=== PATIENT | male | born 1995 | race Caucasian/White ===

== ENCOUNTER 2017-06-02 18:52 | Emergency (ER) | payer MEDICAID, SELFPAY ==
[2017-06-02 18:53] VITALS: BP 139/84; PULSE 82; RESP 16; TEMP 36.6; O2SAT 100; BMI 17.5
--- NOTE | 2017-06-02 18:57 | NURSING ---
NO OLD EKG'S IN MUSE
--- NOTE | 2017-06-02 19:51 | EKG12_ITS ---
Test Reason : CP Blood Pressure : / mmHG Vent. Rate : 091 BPM Atrial Rate : 091 BPM P-R Int : 172 ms QRS Dur : 092 ms QT Int : 340 ms P-R-T Axes : 069 098 057 degrees QTc Int : 418 ms Normal sinus rhythm with sinus arrhythmia Normal ECG Confirmed by GRICELDA BURNETT, JANE ([id number]), online content editor [employer] ([id number]) on 06/05/2017 11:21:36 AM Referred By: MONICA Confirmed By:JANE MADISON MD
[2017-06-02] MEDS: Aspirin 81 MG TAB.CHEW 324 MG PO (19:56)
--- NOTE | 2017-06-02 20:01 | ED.VISSUMM ---
- ER Visit Summary Date of Service: 06/02/17 Chief Complaint: Chest pain History of Present Illness: The patient is a 22 M who presents with chest pain that has been intermittent for the past 2 weeks but has been constant throughout the day today. Patient states the pain woke him up this morning. Patient describes his pain as sharp. Patient states the pain is worse with movement and deep breathing. Patient admits to some shortness of breath. Patient also admits to a cough. Patient denies any fevers or chills. Patient denies any nausea or vomiting. Patient denies any diaphoresis. Physical Examination: Vital signs are stable. Patient is afebrile. Patient is in no acute distress. Oral mucosa is pink and moist. Neck is supple. There is no JVD or lymphadenopathy appreciated. Heart was regular rate and rhythm. Lungs are clear and equal bilateral. There is good respiratory effort noted. Abdomen is soft. Bowel sounds are normal. There is no tenderness. Cranial nerves II through XII are intact. There are no focal motor or sensory deficits noted. The remaining physical exam is within normal limits. Test Results: EKG showed a normal sinus rhythm with a rate of 91. There are no acute ST or T-wave changes noted. There are no prior EKGs available for comparison. A minimal left pleural effusion. CBC, basic metabolic profile, troponin were obtained were all within normal limits. Emergency Department Course and Treatment: Patient was given aspirin here. Patient felt better on reevaluation. Patient has a HEART score of 1 for smoking. Patient was advised that this is low risk for acute cardiac disease. Patient was instructed to follow-up with his primary care physician in 5-7 days. Patient understood and was agreeable with the plan. All questions were answered. Disposition: Discharge home Impression: Chest pain of uncertain etiology This note was generated with [employer] dictation software. It may contain incorrect words, spelling, and punctuation that were not noted in review of the chart prior to signing ED Disposition - Plan for ED Patient: Disposition: Home or Assisted Living Chief Complaint: Chest Pain Diagnosis: Chest pain of uncertain etiology Instructions: ED Chest Pain Atypical Unkn Cause Referrals: Care Physician,No Primary [Primary Care Provider] -
[2017-06-02 20:02] VITALS: BP 128/66; PULSE 73; RESP 18; O2SAT 97
--- NOTE | 2017-06-02 20:04 | RAD_ITS ---
STUDY: X-RAY CHEST REASON FOR EXAM: Male, 22 years old. Left-sided chest pain TECHNIQUE: PA and lateral views of the chest. COMPARISON: Previous study of 12/24/2012 FINDINGS: color television console monitor leads are present. The lungs are clear and expanded. There is a minimal left-sided effusion, new in the interval. Normal size heart. Normal mediastinum and jimmy. Normal visualized pulmonary arteries. Normal visualized aortic arch and descending thoracic aorta. Normal visualized thoracic spine. Normal visualized ribs, clavicles, and shoulders. There is no demonstrated abnormality of the visualized soft tissue structures of the upper abdomen. RAD/Chest PA and Lateral IMPRESSION: Minimal left-sided effusion. Electronically Signed: Woody Madison MD at 20:27 EDT , Service support ,
[2017-06-02 20:07] LABS: Absolute Lymphocyte Count 3.24 X10^3/ul (0.83-4.51); Absolute Neutrophil Count 4.6 X10^3/uL (2.0-7.7); Basophil# 0.04 X10^3/uL; Basophil% 0.4 % (0-1); Eosinophils% 4.4 % (0-5); Hematocrit 45.3 % (40-54); Hemoglobin 15.3 g/dl (13.0-16.5); Lymphocyte # 3.24 X10^3/ul (4.0); Lymphocyte % 35.6 % (19-41); Mean Corp Hgb Conc 33.8 g/gl (32-36); Mean Corpuscular Hgb 29.3 pg (27.0-32.0); Mean Corpuscular Volume 86.8 fL (80-94); Mean Platelet Vol. 9.6 fl (6.2-12.0); Monocyte# 0.79 X10^3/uL; Monocyte% 8.7 % (0-10); Neutrophil # 4.62 X10^3/uL (2.7-7.7); Neutrophil % 50.7 % (47-70); Platelet Count 274 K/mm3 (150-450); RBC Distribution Width CV 12.3 % (11.6-14.6); RBC Distribution Width SD 39.1 fl (35.1-43.9); Red Blood Count 5.22 M/mm3 (4.6-6.2); White Blood Count 9.1 K/mm3 (4.4-11.0)
[2017-06-02 20:21] LABS: Anion Gap 5 (5-15); BUN 11 mg/dL (7-18); BUN/Creat Ratio 12.2 RATIO (10-20); Chloride 107 mmol/L (98-107); EST Glomerular Filtration Rate 115 mL/min (>60); Est Glom Filt Rate - Afr Amer 139 mL/min (>60); Estimated Creatinine Clearance 114.81 ml/min; Glucose 62 mg/dL (74-106); Potassium 3.8 mmol/L (3.5-5.1); Sodium Level 143 mmol/L (136-145)
[2017-06-02 20:23] LABS: POSITIVE COUNT NO; POSITIVE DIFFERENTIAL NO; POSITIVE MORPHOLOGY NO
[2017-06-02 21:09] VITALS: BP 105/64; PULSE 62; RESP 18; O2SAT 97
[2017-06-02 22:19] VITALS: BP 149/71; PULSE 67; RESP 16; O2SAT 99
== END 2017-06-02 22:22 | disposition home or self-care (01) ==
PROVIDERS: Emergency Provider Emergency Medicine
DX: R07.9 Chest pain, unspecified (principal); F17.210 Nicotine dependence, cigarettes, uncomplicated; J90 Pleural effusion, not elsewhere classified
CPT/HCPCS: 71046; 80048; 84484; 85025; 93005; 99284; A4216

== ENCOUNTER 2018-09-27 08:36 | Emergency (ER) | payer SELFPAY ==
[2018-09-27 08:36] VITALS: BP 145/102; PULSE 91; RESP 17; TEMP 36.7; O2SAT 98; BMI 16.2
--- NOTE | 2018-09-27 08:52 | ED.VISSUMM ---
- ER Visit Summary Date of Service: 09/27/18 Chief Complaint: [Depression and anxiety] History of Present Illness: The patient is a 23 M [presents to the emergency department stating that he thinks he had a mental breakdown this morning while at work. Patient states that he just started tearing up and crying. Patient has had history of anxiety and depression in the past and had been on medication but states that those medications did not agree with him and he was having suicidal ideation while on the medications but now while he was off of it. Patient states that everything kind of seems to stem from the fact that he broke up with his baby's mother about 4 months ago and he only gets to see the baby twice a week. Patient has no thoughts of wanting to harm himself or anybody else. He denies any hallucinations. Patient does not feel like he needs to be hospitalized but would like to have some counseling potentially. Patient denies any auditory or visual hallucinations. Patient states that he is feeling significantly more calm at this time.] Physical Examination: [HEENT-PERRLA, EOMI. Cranial nerves II through XII grossly intact. TMs clear. Mucous membranes moist. No adenopathy. Cardiovascular-regular rate and rhythm without murmur or ectopy Lungs-clear to auscultation, chest wall stable without crepitus or subcu emphysema Abdomen-normoactive bowel sounds, soft, nontender, no rebound or rigidity, no peritoneal signs. Extremities-intact ?4, normal range of motion, normal pulses, atraumatic] Test Results: [None indicated] Emergency Department Course and Treatment: [Patient will be given a milligram of Ativan p.o. Patient will be seen by crisis to set up an outpatient plan for him. Patient will be seen at 10 AM today by the counseling center.] Treatment Plan: [Patient will be given a prescription for as needed Ativan.] Disposition: [Discharged home stable condition.] Impression: [Depression Anxiety ] This note was generated with [employer] dictation software. It may contain incorrect words, spelling, and punctuation that were not noted in review of the chart prior to signing ED Disposition - Plan for ED Patient: Referrals: Care Physician,No Primary [Primary Care Provider] -
--- NOTE | 2018-09-27 08:56 | ED.DEP ---
ED Disposition - Plan for ED Patient: Instructions: Depression, Panic Attack Prescriptions: Lorazepam [Ativan] 1 mg PO TID PRN #10 tab PRN Reason: Anxiety Prescription Printed Referrals: Care Physician,No Primary [Primary Care Provider] - Additional Instructions: Go to counseling center at 10am for appointment
[2018-09-27] MEDS: LORazepam 1 MG Tablet PO (09:01)
[2018-09-27 09:02] VITALS: BP 134/74; PULSE 79; RESP 18; O2SAT 99
== END 2018-09-27 09:05 | disposition home or self-care (01) ==
PROVIDERS: Emergency Provider Emergency Medicine
DX: F41.9 Anxiety disorder, unspecified (principal); F32.9 Major depressive disorder, single episode, unspecified; Z72.0 Tobacco use; F12.90 Cannabis use, unspecified, uncomplicated
CPT/HCPCS: 99283

== ENCOUNTER 2018-11-02 15:09 | Emergency (ER) | payer SELFPAY ==
[2018-11-02 15:09] VITALS: BP 111/67; PULSE 100; RESP 17; TEMP 37.6; O2SAT 96; BMI 17.2
--- NOTE | 2018-11-02 15:42 | ED.DCSUM_ITS ---
History of Present Illness Chief Complaint: Abscess Informant: Patient Onset: Days - 3 Context: Gradual Onset Timing: Continuous Narrative: Patient is a 23-year-old male with remote history of brain tumor as a child pres enting from home with worsening redness and swelling of his right forearm. He is right-hand dominant. Pain started approximately 3 days ago with what he describes as a boil. Yesterday he popped it open and did have purulent drainage from it. He has had worsening redness and pain around the area that has been spreading. Patient denies any fever or chills. Denies any nausea or vomiting. Denies any history of abscesses or MRSA. He denies any allergies. He denies any other complaints at this time. Patient took a dose of Motrin early this morning. Past Medical History - Allergies and Home Meds Allergies/Adverse Reactions: Allergies No Known Allergies Allergy (Verified 11/02/18 15:09) Primary Care Physician: Care Physician,No Primary [Primary Care Provider] - Surgical History: no surgical history, - - Brain surgery Smoking Status: Current every day smoker Alcohol: Occasional Drugs: Marijuana, - - Denies any IV drug use Review of Systems All systems negative except as indicated General: Denies: Chills, Fever Skin: Reports: Rash, Abscess - right forearm Physical Exam Vital Signs/Narrative: Vital Signs Temp Pulse Resp BP Pulse Ox 11/02/18 15:09 99.7 F H 100 17 111/67 96 Inital Vital Signs reviewed: Yes General: Well nourished, Well developed, No Acute Distress Head: Normocephalic, Atraumatic Eyes: Perrl, EOMI ENT: Moist mucous membranes, No rhinorrhea Neck: Supple, Nontender Cardiovascular: Regular rate, Regular rhythm, No murmurs Respiratory: No distress Abdomen: Soft, Nontender Extremities: No edema, Tenderness - right dostal forearm, palmar aspect Skin: - - 1 cm circumferential area of erythema and fluctuance consistent with an abscess with a central scab. There is a 10 cm surrounding area of erythema and warmth consistent with cellulitis, small amount of streaking at the medial proximal aspect of this approximately 2 cm Neurological: Alert, Oriented x3, Cranial nerves II-XII grossly intact, Normal Strength, Normal Sensation Psychological: Normal affect, Normal Mood Diagnostic/Tx/Re-eval - Medical Decision Making Patient has abscess with associated cellulitis of the right lower arm. She had previously lanced the abscess. The abscess is reopened up with no purulence expressed. Patient is given first dose of Bactrim and Keflex in the emergency room. Edges of the erythema are marked. Patient is counseled on signs of worsening infection such as fever, spreading erythema or worsening pain. Patient is counseled on signs and symptoms requiring return to the emergency room. Patient verbalizes agreement and understand this plan. Patient discharged home in stable and improved condition. Procedures Procedure(s): Incision and drainage. Area cleansed with alcohol. 0.5 cc of 1% lidocaine with epinephrine injected over maximum area of fluctuance to form a wheel. A #11 blade is used to make 1 cm linear incision. Wound was opened with a hemostat. No purulence was stressed. Patient tolerated procedure well with no obvious application. ED Disposition - Plan for ED Patient: Disposition: Home or Assisted Living Diagnosis: Cellulitis of right upper extremity Instructions: ABSCESS, Incision and Drainage, MRSA SKIN INFECTION, Suspected or Confirmed Prescriptions: Sulfamethoxazole/Trimethoprim [Bactrim Ds Tablet] 1 ea PO BID #14 tab Prescription Printed Cephalexin [Keflex] 500 mg PO [id number] #28 cap Prescription Printed Ibuprofen [Motrin] 600 mg PO Q6H PRN PRN #20 tab PRN Reason: Pain Prescription Printed Referrals: Zoie Bateman MD [STAFF PHYSICIAN] - Additional Instructions: Apply warm compresses 3-4 times a day. Return if the marked redness is worsening or you develop fever. Try to keep the wound clean.
[2018-11-02 16:23] VITALS: PULSE 64; TEMP 37.6; O2SAT 100
[2018-11-02] MEDS: Ibuprofen 600 MG Tablet PO (16:27)
[2018-11-02] MEDS: Cephalexin 500 MG Capsule PO (16:27)
[2018-11-02] MEDS: Smz/Tmp Ds Tablet 1 TABLET PO (16:28)
[2018-11-02 17:11] VITALS: BP 123/64; PULSE 61; O2SAT 100
== END 2018-11-02 17:14 | disposition home or self-care (01) ==
PROVIDERS: Emergency Provider Emergency Medicine
DX: L03.113 Cellulitis of right upper limb (principal); F17.200 Nicotine dependence, unspecified, uncomplicated
CPT/HCPCS: 10060; 99283

== ENCOUNTER 2021-04-15 10:05 | Emergency (ER) | payer MEDICAID, SELFPAY ==
[2021-04-15 10:06] VITALS: BP 130/85; PULSE 82; RESP 17; TEMP 36.4; O2SAT 98; BMI 18.7
--- NOTE | 2021-04-15 10:17 | EX.ED.GENINJ ---
HPI <SONU Johnson - Last Filed: 04/15/21 10:56> History of Present Illness Chief Complaint: Laceration Narrative Narrative: 25-year-old [id number] male presents with a laceration to his right index finger. He was using a box stapler approximately an hour ago and nicked the edge of his finger. Bleeding is controlled. Last tetanus over 10 years ago. PFSH <SONU Johnson Last Filed: 04/15/21 10:56> PFSH Home Medications cephalexin 500 mg PO [id number] #28 cap 11/02/18 [Rx Last Taken Unknown] ibuprofen 600 mg PO Q6H PRN PRN #20 tab 11/02/18 [Rx Last Taken Unknown] sulfamethoxazole-trimethoprim 1 ea PO BID #14 tab 11/02/18 [Rx Last Taken Unknown] Allergy/AdvReac Type Severity Reaction Status Date / Time No Known Allergies Allergy Verified 04/15/21 10:06 Social History Smoking Status: Current every day smoker tobacco type: cigarettes ROS <SONU Johnson - Last Filed: 04/15/21 10:56> ROS ED ROS Narrative Constitutional: Negative for fever, chills, malaise. Eyes: Negative for visual change. ENT: Negative for sore throat, ear pain, rhinorrhea. CVS: Negative for palpitations, chest pain, syncope. Respiratory: Negative for shortness of breath, cough. GI: Negative for abdominal pain, nausea, vomiting. : Negative for dysuria, hematuria or frequency. Neuro: Negative for headache, motor/sensory dysfunction. Skin: Positive for wound. Negative for rash, abscess. Musc: Negative for joint pain, swelling. Heme: Negative for easy bruising, bleeding, lymphadenopathy. EXAM <SONU Johnson - Last Filed: 04/15/21 10:56> Physical Exam Narrative Exam Narrative: CONST: Patient sitting in no acute distress. EYES: Normal inspection. ENT: Normal inspection, moist mucous membranes. NECK: Normal inspection. Back: Normal inspection, no CVA tenderness. SKIN: Color normal, no rash, warm, dry, intact. EXTREMITIES: Normal appearance, no gross deformity. Right index finger pad has 0.5 cm flap laceration and also a small abrasion. No involvement of the nail, no subungual hematoma. Full ROM, capillary refill less than 2 seconds. NEURO: Oriented x4. PSYCH: Normal affect. Const Vital Signs: 04/15/21 10:06 Temperature 97.5 F L Temperature Source Temporal Pulse Rate 82 Respiratory Rate 17 Blood Pressure 130/85 H Blood Pressure Mean 100 Pulse Ox 98 Oxygen Delivery Method Room Air <Dr. Yordy Jin DO - Last Filed: 04/15/21 12:42> Physical Exam Const Vital Signs: 04/15/21 10:06 Temperature 97.5 F L Temperature Source Temporal Pulse Rate 82 Respiratory Rate 17 Blood Pressure 130/85 H Blood Pressure Mean 100 Pulse Ox 98 Oxygen Delivery Method Room Air MDM <SONU Johnson - Last Filed: 04/15/21 10:56> [facility] Narrative Medical decision making narrative: Patient was evaluated for right index finger laceration. He has a 0.5 cm superficial laceration and also an abrasion on the finger pad. Neurovascularly intact and no bony tenderness. It was thoroughly cleansed with soap and water and closed with skin glue. He refused a tetanus vaccine. He was counseled on wound care and to watch for signs of infection and was discharged in stable condition. Diagnosis 1. Right index finger laceration- glued <Dr. Yordy Jin, - Last Filed: 04/15/21 12:42> [facility] Narrative Medical decision making narrative: Patient was seen and evaluated with the PA. I agree with her evaluation and assessment. Patient is a superficial laceration to the right index finger. There is no active bleeding. Patient does not want a tetanus update and refuses. I think his wound can be closed with skin glue. Patient was amenable to this. He is discharged home in stable condition Discharge Plan Triage Chief Complaint: Laceration ED Provider: Jacqueline Art Dx/Rx/DC Orders Clinical Impression: Finger laceration Instructions: ED Laceration, Extremity: Skin Glue Prescriptions: No Action sulfamethoxazole-trimethoprim 1 EACH tablet 1 ea PO BID Qty: 14 RF: 0 cephalexin 500 MG capsule 500 mg PO [id number] Qty: 28 RF: 0 ibuprofen 600 MG tablet 600 mg PO Q6H PRN PRN (Reason: Pain) Qty: 20 RF: 0 Primary Care Provider: Care Physician,No Primary Referrals: Care Physician,No Primary [Primary Care Provider] - Activity Restrictions/Additional Instructions: The laceration was closed with skin glue which will fall off on its own in 1-2 weeks. Keep clean. You can shower or wash hands but do not keep submerged under water. Disposition Disposition: Home, Self Care Discharge Date/Time: 04/15/21 11:05
== END 2021-04-15 11:05 | disposition home or self-care (01) ==
PROVIDERS: Emergency Provider Physician Assistant; Visit Provider Physician Assistant
DX: S61.210A Laceration without foreign body of right index finger without damage to nail, initial encounter (principal); S60.519A Abrasion of unspecified hand, initial encounter; F17.210 Nicotine dependence, cigarettes, uncomplicated; Z23 Encounter for immunization; W26.8XXA Contact with other sharp object(s), not elsewhere classified, initial encounter
CPT/HCPCS: 12001; 99282

== ENCOUNTER 2021-12-22 16:16 | Emergency (ER) | payer MEDICAID, SELFPAY ==
[2021-12-22 16:16] VITALS: BP 119/89; PULSE 112; RESP 16; TEMP 36.6; O2SAT 99; BMI 16.9
--- NOTE | 2021-12-22 16:24 | RAD_ITS ---
STUDY: X-RAY - RIGHT HAND REASON FOR EXAM: Male, 26 years old. INJURY TECHNIQUE: 3 view(s) of the hand. COMPARISON: None. FINDINGS: Normal radiocarpal articulation. Normal distal radioulnar joint. Normal visualized carpal bones. Normal carpal articulations Normal carpometacarpal articulation of the thumb. Normal second through fifth carpometacarpal joints. Suspect subtle oblique fracture the base of the fifth metacarpal bone. Normal metacarpophalangeal joint of the thumb. Normal interphalangeal joint of the thumb. Normal proximal and distal phalanges of the thumb. Normal metacarpophalangeal joints of the second through fifth fingers. Normal proximal and distal interphalangeal joints of the second through fifth fingers. Normal phalanges of the second through fifth fingers. The soft tissue structures are unremarkable. RAD/Hand Min 3 Views IMPRESSION: Suspect subtle oblique fracture the base of the fifth metacarpal bone. Electronically Signed: Wally Mccoy MD at 17:41 EDT ,
--- NOTE | 2021-12-22 16:50 | EX.ED.UPPERE ---
HPI History of Present Illness Chief Complaint: Upper Extremity Injury Narrative Narrative: Patient presents with right hand pain after mechanical fall yesterday. No hand injury, no wrist injury no other injury. PFSH PFSH Home Medications cephalexin 500 mg capsule 500 mg PO [id number] #28 caps 11/02/18 [Rx Last Taken Unknown] ibuprofen 600 mg tablet 600 mg PO Q6H PRN PRN Pain #20 tabs 11/02/18 [Rx Last Taken Unknown] sulfamethoxazole 800 mg-trimethoprim 160 mg tablet 1 ea PO BID #14 tabs 11/02/18 [Rx Last Taken Unknown] Allergy/AdvReac Type Severity Reaction Status Date / Time No Known Allergies Allergy Verified 12/22/21 16:18 Social History Smoking Status: Current every day smoker tobacco type: cigarettes ROS ROS ED ROS Narrative Past medical history: none Medications: Reviewed Social history: Noncontributory Review of systems: Musculoskeletal: Right hand pain as in HPI Skin: No abrasions or lacerations Neurological: No weakness or paresthesias Hematologic: No easy bleeding or easy bruising EXAM Physical Exam Narrative Exam Narrative: Physical exam General: Patient does not appear in significant distress . Head: Normocephalic, Atraumatic Neck: No C-spine tenderness Cardiovascular: Normal distal pulses Back: Nontender, Normal Inspection. Extremities: Right palm has tenderness over the hypothenar region. Normal strength sensation and full range of motion no wrist pain Skin: No abrasions, no lacerations Neurological: Normal strength and sensation Const Vital Signs: 12/22/21 16:16 Temperature 98 F Temperature Source Temporal Pulse Rate 112 H Respiratory Rate 16 Blood Pressure 119/89 H Blood Pressure Mean 99 Pulse Ox 99 Oxygen Delivery Method Room Air MDM MDM Radiography Diagnostic Testing: Right hand x-ray read by me is normal Treatment and Re-Evaluation Narrative: Patient has a normal x-ray I will discharge with reassurance I do not believe he needs a splint Discharge Plan Triage Chief Complaint: Upper Extremity Injury ED Provider: Quirino Majano Dx/Rx/DC Orders Clinical Impression: Fall, Contusion of hand Instructions: Bone Contusion Prescriptions: No Action sulfamethoxazole-trimethoprim 1 EACH tablet 1 ea PO BID Qty: 14 0RF cephalexin 500 MG capsule 500 mg PO [id number] Qty: 28 0RF ibuprofen 600 MG tablet 600 mg PO Q6H PRN PRN (Reason: Pain) Qty: 20 0RF Primary Care Provider: Care Physician,No Primary Referrals: Care Physician,No Primary [Primary Care Provider] - 3-5 Days Disposition Disposition: Home, Self Care
== END 2021-12-22 16:59 | disposition home or self-care (01) ==
PROVIDERS: Emergency Provider Emergency Medicine; Visit Provider Emergency Medicine
DX: S60.229A Contusion of unspecified hand, initial encounter (principal); F17.210 Nicotine dependence, cigarettes, uncomplicated; W19.XXXA Unspecified fall, initial encounter
CPT/HCPCS: 73130; 99282

== ENCOUNTER 2022-06-26 14:22 | Emergency (ER) | payer MEDICAID, SELFPAY ==
[2022-06-26 14:23] VITALS: BP 131/89; PULSE 99; RESP 16; TEMP 36.3; O2SAT 98; BMI 17.4
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
[2022-06-26] MEDS: Ketorolac 15 MG/ML Vial IV (14:39)
[2022-06-26] MEDS: Ondansetron 4 MG/2 ML Vial IV (14:39)
[2022-06-26] MEDS: Morphine 4 MG/ML Syringe IV (14:40)
[2022-06-26 14:55] LABS: Bedside Glucose 97 mg/dL (74-106)
[2022-06-26 15:06] LABS: Anion Gap 9 (5-15); BUN 14 mg/dL (7-18); BUN/Creat Ratio 14.6 RATIO (10-20); Calcium,Total 9.3 mg/dL (8.5-10.1); Chloride 106 mmol/L (98-107); Creatinine, Serum 0.96 mg/dL (0.70-1.30); EST Glomerular Filtration Rate 102 mL/min (>60); Est Glom Filt Rate - Afr Amer 123 mL/min (>60); Glucose 97 mg/dL (74-106); Potassium 3.1 mmol/L (3.5-5.1); Sodium Level 140 mmol/L (136-145)
== END 2022-06-26 15:32 | disposition home or self-care (01) ==
PROVIDERS: Emergency Provider Emergency Medicine; Visit Provider Emergency Medicine
DX: S29.019A Strain of muscle and tendon of unspecified wall of thorax, initial encounter (principal); E11.9 Type 2 diabetes mellitus without complications; E87.6 Hypokalemia; W19.XXXA Unspecified fall, initial encounter; F17.210 Nicotine dependence, cigarettes, uncomplicated
CPT/HCPCS: 80048; 82962; 99283; A4216; J2405

== ENCOUNTER 2022-12-08 07:34 | Emergency (ER) | payer MEDICAID, SELFPAY ==
[2022-12-08 07:35] VITALS: BP 133/91; PULSE 105; RESP 18; TEMP 36.2; O2SAT 96; BMI 17.7
--- NOTE | 2022-12-08 07:42 | EX.ED.DYSGE1 ---
HPI History of Present Illness Chief Complaint: [facility] Medical History (Updated 12/08/22 @ 07:50 by Mag Ha) Hx of traumatic brain injury Home Medications sulfamethoxazole 800 mg-trimethoprim 160 mg tablet 1 ea PO BID #14 tabs 11/02/18 [Rx Last Taken Unknown] sulfamethoxazole 800 mg-trimethoprim 160 mg tablet (Bactrim DS) 1 tab PO BID 7 days #14 tabs 12/08/22 [Rx Last Taken Unknown] Allergy/AdvReac Type Severity Reaction Status Date / Time No Known Allergies Allergy Verified 12/08/22 07:36 Social History (Updated 06/26/22 @ 14:[address] Kasi Snyder MD) Smoking Status: Current every day smoker tobacco type: cigarettes substance use type: does not use EXAM Physical Exam Const Vital Signs: 12/08/22 07:35 Temperature 97.2 F L Temperature Source Temporal Pulse Rate 105 H Respiratory Rate 18 Blood Pressure 133/91 H Blood Pressure Mean 105 Pulse Ox 96 Oxygen Delivery Method Room Air MDM MDM MDM Narrative Medical decision making narrative: HISTORY OF PRESENT ILLNESS: 27-year-old male here with left middle finger redness swelling pain and drainage. He states that started several days ago. States he works his hands at work he injured his left hand. He noticed several days later he developed redness swelling. He does note it was draining yellow/white fluid several days ago but has since stopped the redness has gotten worse and is painful to palpation. He denies history of diabetes or other immunocompromising states REVIEW OF SYSTEMS: Pertinent positives: Left middle finger redness Pertinent negatives: Fever, nausea vomiting PHYSICAL EXAM: Nursing triage notes reviewed, Vital signs reviewed Constitutional: please see mdm Extremities: Fingers were held in neutral position, not held in flexion, no fusiform swelling, no pain over flexor tendons, Neuro: Intact 5/5 strength with ok sign (median), intact finger abduction (ulnar) intact wrist extension (radial n). Intact sensation in the radial, ulnar, and median nerve distributions. Skin: Erythema noted to the dorsal surface of the third digit of the left hand MEDICAL DECISION MAKING: Chief Complaint: Finger pain External records reviewed: Prior ED records reviewed: Last ED visit in June 2022 Factors affecting care: none Social determinants of health: none History obtained from others: none Consults: none MDM Narrative: Patient was hemodynamically stable, afebrile, nontoxic-appearing. I considered the following differential diagnosis: Cellulitis, paronychia, felon, flexor tenosynovitis Clinical exam is consistent with cellulitis. No evidence of felon, paronychia or flexor tenosynovitis. Will provide antibiotics. Gave strict return precautions. The patient and/or family, caregivers express understanding. The patient and/or family, caregivers agrees with the plan. Shared decision making: I will have a discussion with the patient and or visitors regarding risk/benefits of further testing or admission. They will be made aware of of the risk/benefits inherent in this decision they will be given the opportunity to voice understanding. Total critical care time today provided was at least 0 minutes. This excludes separately billable procedures. Critical care time (if documented) is secondary to the patient having high probability of clinically significant/life threatening deterioration in the patient's condition which required my urgent intervention. Impression: 1. Finger cellulitis Dispo: Discharge Discharge Plan Triage Chief Complaint: Wound ED Provider: Abraham Howell Dx/Rx/DC Orders Instructions: ED Cellulitis Prescriptions: New sulfamethoxazole-trimethoprim [Bactrim DS] 800-160 mg tablet 1 tab PO BID 7 Days Qty: 14 0RF No Action sulfamethoxazole-trimethoprim 1 EACH tablet 1 ea PO BID Qty: 14 0RF Stand Alone Forms: ED Work / School Excuse Primary Care Provider: Care Physician,No Primary Referrals: Rudy Gonzalez MD [Med Staff - [employer]] - Activity Restrictions/Additional Instructions: Thank you for trusting us with your care today! Please take Tylenol (2 pills, 650 mg), ibuprofen (2 pills, 400 mg) every 6 hours as needed for pain and fever control. Please take antibiotics as prescribed. Please return to the emergency department if your symptoms change or worsen. Specifically develop nausea vomiting out of antibiotic by mouth. If your redness suddenly gets worse and spreads up your arm or matter of hours. Please follow with your primary care physician for further outpatient evaluation and management. Disposition Disposition: Home, Self Care Discharge Date/Time: 12/08/22 08:02
== END 2022-12-08 08:02 | disposition home or self-care (01) ==
LOC: ED 08:01
PROVIDERS: Emergency Provider Emergency Medicine; Visit Provider Emergency Medicine
DX: L03.019 Cellulitis of unspecified finger (principal); F17.210 Nicotine dependence, cigarettes, uncomplicated; Z87.820 Personal history of traumatic brain injury
CPT/HCPCS: 99282

== ENCOUNTER 2025-02-17 12:09 | Emergency (ER) | payer SELFPAY ==
[2025-02-17 12:09] VITALS: BP 120/96; PULSE 107; RESP 18; TEMP 36.9; O2SAT 99; BMI 17.9
[2025-02-17 12:11] VITALS: BP 120/96; PULSE 105; RESP 16; TEMP 36.9; O2SAT 98
--- NOTE | 2025-02-17 12:57 | CT_ITS ---
PROCEDURE: ABDOMEN/PELVIS W IV CONT ONLY 02/17/2025 REASON FOR EXAM: RLQ PAIN TECHNIQUE: Procedure Code: [id number] Modality: CT Procedure: ABDOMEN/PELVIS W IV CONT ONLY Coronal and Sagittal reconstruction series were provided. CONTRAST: Isovue-300 VOLUME: 98 mL One or more dose reduction techniques were used (e.g., Automated exposure control, adjustment of the mA and/or kV according to patient size, use of iterative reconstruction technique. RADIATION DOSE SUMMARY: DLP: 389.50 MGycm COMPARISON: None available. FINDINGS: Lower chest: Lung bases are clear. Liver: Normal size. Mild hepatic steatosis. No enhancing lesion. Gallbladder and biliary ducts: Unremarkable gallbladder. Normal caliber intrahepatic and common bile ducts. Pancreas:Unremarkable. No ductal dilatation or mass. No peripancreatic fluid. Spleen: Unremarkable. Adrenal glands: Unremarkable. Kidneys and ureters: Normal renal size, morphology, and enhancement. No nephroureterolithiasis or hydroureteronephrosis. No renal mass. Urinary bladder: Nondistended. Otherwise unremarkable. GI: Unremarkable stomach and duodenum. Normal caliber small bowel and large bowel. Multiple loops of fluid-filled bowel, predominantly small bowel and right colon. No evidence for bowel obstruction. Appendix: Unremarkable. Peritoneum: No ascites. Lymph nodes: Scattered nonspecific subcentimeter shotty mesenteric lymph nodes. No lymphadenopathy. Vasculature: Portal, splenic, and superior mesenteric veins are patent. No abdominal aortic aneurysm. Reproductive organs: Normal size prostate. Symmetrical seminal vesicles. Musculoskeletal and soft tissues: No aggressive osseous lesions. Unremarkable soft tissues. CT/Abdomen/Pelvis W IV Cont ONLY IMPRESSION: 1. No evidence of bowel obstruction. 2. No acute appendicitis. 3. Multiple loops of fluid-filled bowel which is nonspecific but may be seen in the setting of diarrhea. Reading Location: [id number]
[2025-02-17 13:08] LABS: Hematocrit 48.2 % (40-54); Hemoglobin 16.6 g/dL (13.0-16.5); Immature Granulocytes Count 0.100 X10^3/uL (0.0-0.0); Mean Corp Hgb Conc 34.4 g/dL (32-36); Mean Corpuscular Volume 87.0 fL (80-94); Mean Platelet Vol. 9.1 fl (6.2-12.0); NRBC Flagged by Analyzer 0 % (0-5); Platelet Count 275 K/mm3 (150-450); RBC Distribution Width CV 12.2 % (11.6-14.6); RBC Distribution Width SD 38.7 fl (35.1-43.9); Red Blood Count 5.54 M/mm3 (4.6-6.2); White Blood Count 20.7 K/mm3 (4.4-11.0)
--- NOTE | 2025-02-17 13:12 | EDS_ITS ---
HPI History of Present Illness Chief Complaint: General Illness Narrative Narrative: Patient is a 29-year-old male with no known significant past medical history does not follow with a physician on a regular basis who presents to the emergency department the chief complaint of abdominal pain nausea, vomiting and not feeling well. He states that he has been sick for about 10 days however starting yesterday he became significantly worse and has been able to keep anything down prompting him to come here for further evaluation and management. Patient denies any sick contacts. He denies any previous abdominal surgery. [facility] Medical History Hx of traumatic brain injury Home Medications ?Medication ?Instructions ?Recorded ?Last Taken ?Type dicyclomine 20 mg tablet 20 mg PO TID PRN abdominal p ain 02/17/25 Unknown Rx #20 tabs ondansetron 4 mg disintegrating 4 mg PO Q6H PRN nausea and 02/17/25 Unknown Rx tablet vomiting #20 tabs Allergy/AdvReac Type Severity Reaction Status Date / Time No Known Allergies Allergy Verified 02/17/25 12:11 Family History no significant family his Social History Smoking Status: Current every day smoker tobacco type: cigarettes substance use type: does not use ROS ROS ED ROS Narrative Constitutional: Denies any fevers, chills, headache Eyes: Denies double vision Cardiovascular: Denies chest pain Respiratory: Denies shortness of breath Abdomen: Complains of abdominal pain nausea vomiting as noted above : Denies urinary symptoms Neurological: Complains of generalized weakness denies any numbness or tingling Musculoskeletal: Denies back pain Skin: Denies any rashes or lesions EXAM Physical Exam Narrative Exam Narrative: General: Patient was lying in bed did appear to be feeling unwell overall Head: Atraumatic, normocephalic Eyes: PERRL bilaterally, EOMI bilaterally, no conjunctival injection noted Neck: Soft, supple, trachea midline Cardiovascular: Patient tachycardic with a regular rhythm Respiratory: Clear to auscultation bilaterally Abdomen: Soft, tenderness to palpation of the right lower quadrant no rebound or guarding on exam Extremities: +5/5 strength noted in the bilateral upper and lower extremities Neurological: Patient following commands and that he was at [facility] year is 2024 Skin: Warm, dry, intact no rashes or lesions noted Const Vital Signs: 02/17/25 12:09 02/17/25 12:11 02/17/25 14:09 Temperature 98.4 F 98.4 F Temperature Source Oral Oral Pulse Rate 107 H 105 H 97 Respiratory Rate 18 16 26 H Blood Pressure 120/96 H 120/96 H 127/78 H Blood Pressure Mean 104 104 94 Pulse Ox 99 98 100 Oxygen Delivery Method Room Air Room Air Room Air MDM MDM MDM Narrative Medical decision making narrative: Patient is a 29-year-old male who presented to the emergency department the chief complaint of abdominal pain nausea vomiting not able to keep anything down. On the differential diagnose includes but not limited to viral gastroenteritis, appendicitis, pancreatitis. Once workup is obtained reviewed he will be reevaluated. Patient CBC was significant for leukocytosis of 20,000, hemoglobin was noted to be 16.6 hemoconcentrated, plate count 275. Patient sodium was noted be 139, potassium normal at 4.4, creatinine 0.96. Patient's AST and ALT were 30 and 22 respectively lipase normal at 39, urinalysis reviewed showed 5 ketones no evidence of infection. Patient CT ab pelvis with IV contrast reviewed showed no evidence of bowel obstruction no acute appendicitis with multiple loops of fluid-filled bowel nonspecific but may be seen in setting diarrhea. Discussed case with on-call general surgeon Dr. Miner who reviewed the CT as well and also agrees that he does not feel that this patient has evidence on CT to suggest appendicitis. Patient passed oral challenge here in the emergency department. He is advised to continue supportive care with pushing fluids and use the Bentyl and Zofran as prescribed. He is encouraged to follow-up his doctor and return with worsening symptoms or any concerns. He is agreeable this plan all question concerns answered he is discharged home in stable condition Lab Data Labs: Laboratory Results - last 24 hr 02/17/25 02/17/25 12:55 13:44 WBC 20.7 H RBC 5.54 Hgb 16.6 H Hct 48.2 MCV 87.0 MCH 30.0 MCHC 34.4 RDW Std Deviation 38.7 RDW Coeff of Bari 12.2 Plt Count 275 MPV 9.1 Immature Gran % (Auto) 0.500 Neut % (Auto) 92.2 H Lymph % (Auto) 3.4 L [place] % (Auto) 3.5 Eos % (Auto) 0.1 Baso % (Auto) 0.3 Absolute Neuts (auto) 19.1 H Absolute Lymphs (auto) 0.71 L Nucleated RBC % 0 Sodium 139 Potassium 4.4 Chloride 103 Carbon Dioxide 24.5 Anion Gap 12 BUN 19 Creatinine 0.96 Estim Creat Clear Calc 106.34 Est GFR (MDRD) Non-Af 111 BUN/Creatinine Ratio 19.4 Glucose 135 H Calcium 9.6 Total Bilirubin 0.48 AST 30 ALT 22 Alkaline Phosphatase 61 Total Protein 7.5 Albumin 4.8 Globulin 2.7 Albumin/Globulin Ratio 1.8 Lipase 39 Urine Color Yellow Urine Clarity Clear Urine pH 7.0 Ur Specific [place] 1.010 Urine Protein 30 H Urine Glucose (UA) Normal Urine Ketones 5 H Urine Occult Blood Negative Urine Nitrite Negative Urine Bilirubin Negative Urine Urobilinogen Normal Ur Leukocyte Esterase Negative Urine RBC 0 SEEN Urine WBC 0 SEEN Ur Squamous Epith Cells 0-5 SEEN Urine Bacteria 0 SEEN Urine Mucus 0 SEEN Radiography Diagnostic Testing: Clinical Impression(s) from Imaging Studies Abdomen/Pelvis CT 02/17/25 12:57 IMPRESSION: 1. No evidence of bowel obstruction. 2. No acute appendicitis. 3. Multiple loops of fluid-filled bowel which is nonspecific but may be seen in the setting of diarrhea. Reading Location: [id number] Discharge Plan Triage Chief Complaint: General Illness ED Provider: Go Hamm Dx/Rx/DC Orders Clinical Impression: Abdominal pain, Nausea & vomiting, Viral gastroenteritis Prescriptions: New dicyclomine 20 mg tablet 20 mg PO TID PRN (Reason: abdominal pain) Qty: 20 0RF ondansetron 4 mg tablet,disintegrating 4 mg PO Q6H PRN (Reason: nausea and vomiting) Qty: 20 0RF Primary Care Provider: Care Physician,No Primary Referrals: Care Physician,No Primary [Primary Care Provider, Medical] Jonelle Craig, [facility] Activity Restrictions/Additional Instructions: Your CT of your belly did not show any evidence of appendicitis you likely have a viral illness causing your symptoms continue supportive care with pushing fluids such as water, Pedialyte, Gatorade etc. Use prescriptions as prescribed and return with worsening symptoms or any other concerns Print Language: Luxembourgish Disposition Disposition: Home, Self Care
--- OUTSIDE RECORDS SUMMARY | 2025-02-17 13:21 | XMS RPT_ITS | CCD ---
Author Organization [facility] Inform ion Partnership [facility] Care Team Providers Care Electrical Contacts Adjuster Name Role Phone Doug Combs Unavailable Now Nurse Unavailable Unavailable Unavailable Primary Care Provider Unavailabl e Unavailable Primary Care Provider Unavailabl e Quirino Majano Attending Unavailable Care Physician, No Primary Primary Care Unava ilable Snyder, Kasi Attending Unavailable Care Physician, No Primary Primary Care Unava ilable Medications Current Medications Medication Drug Class(es) Dates Sig (Normalized) Sig (Original) amoxicillin 875 mg / clavulanate 125 mg oral tablet (1 source) Penicillin-class Antibacterial Start: 09-07-2021 End: 09-14-2021 take 1 tablet by mouth twice daily amoxicillin-cla vulanic acid (AUGMENTIN) 875-125 mg per tablet Indications: Cat scratch of hand, left, initial encounter Take 1 tablet by mouth twice daily for 7 days. 14 tablet 0 09/07/2021 09/14/2021 Active Comment on above: Take 1 tablet by scott th twice daily for 7 days. sulfamethoxazole 800 mg / trimethoprim 160 mg oral tablet (4 sources) Dihydrofolate Reductase Inhibitor Antibacterial, Sulfonamide Antimicrobial Start: 12-08-2022 take 1 tablet by mouth twice daily Sulfamethoxazol e-Trimethoprim (Bactrim Ds) 800-160 mg tablet Active 1 TABLET PO TWICE A DAY 05 09December 08, 2022 12:00am Start: 11-02-2018 Sulfamethoxazo le-Trimethoprim Active 1 EACH PO TWICE A DAY November 02, 2018 12:00am Completed/Discontinued Medications Medication Drug Class(es) Dates Sig (Normalized) Sig (Original) acetaminophen 325 mg / HYDROcodone bitartrate 5 mg oral tablet (2 sources) Opioid Agonist Start: 06-26-2022 End: 12-08-2022 take 1 tablet by mouth every six hours as needed Hydrocodone-Aceta minophen Discontinued 1 TABLET PO EVERY 6 HOURS NEEDED 10 June 263 October 16th, 2023 7:52am cephalexin 500 mg oral capsule (3 sources) Cephalosporin Antibacterial Start: 11-02-2018 End: 12-08-2022 take 500 mg by mouth every six hours Cephalexin Discontinued 500 MG PO EVERY 6 HOURS FOR 7 DAYS November 02, 2018 12:00am December 08, 2022 7:52am FLUOXETINE HCL CAPS (2 sources) Serotonin Reuptake Inhibitor Start: 10-17-2016 FLUOXETINE HCL CAPS as directed FLUOXETINE HCL CAPS [id number] Marsha Solorio LPN ibuprofen 600 mg oral tablet (3 sources) Nonsteroidal Anti-inflammatory Drug Start: 11-02-2018 End: 12-08-2022 take 600 mg by mouth every six hours as needed Ibuprofen Discontinued 600 MG PO EVERY 6 HOURS NEEDED November 02, 2018 12:00am December 08, 2022 7:52am 2 ml ketorolac tromethamine 30 mg/ml injection (1 source) Nonsteroidal Anti-inflammatory Drug, Cyclooxygenase Inhibitor Start: 11-25-2022 End: 11-25-2022 keTORolac 60 mg injection (Toradol) Start: 11-25-2022 End: 11-25-2022 keTORolac 60 mg injection (T oradol) LORazepam 0.5 mg oral tablet (1 source) Benzodiazepine Start: 11-08-2012 End: 09-07-2021 take 1 tablet by mouth every eight hours as needed LORazepam (ATIVAN) 0.5 mg Tab Take 1 tablet by mouth three times daily as needed (anxiety). 10 tablet 0 11/08/2012 09/07/2021 Discontinued Comment on above: Take 1 tablet by mouth three times daily as needed (anxiety). naproxen 500 mg oral tablet (2 sources) Nonsteroidal Anti-inflammatory Drug Start: 06-26-2022 End: 12-08-2022 take 1 tablet by mouth twice daily Naproxen (Naprosyn) 500 mg tablet Discontinued 500 MG PO TWICE A DAY June 26, 2022 12:00am December 08, 2022 7:52am Problems Active Problems Problem Classification Problem Date Documented Date Episodic/Chronic E Codes: Fall (3 sources) Fall; Translations: [Unspecified fall, initial encounter] 12-30-2021 Episodic Fluid and electrolyte disorders (2 sources) Acute hypokalemia; Translations: [Hypokalemia] 06-26-2022 Episodic Headache; including migraine (1 source) Headache; Translations: [Headache, unspecified headache type] 11-25-2022 Episodic Influenza (1 source) Influenza-like illness; Translations: [Influenza due to unidentified influenza virus with other respiratory manifestations] Episodic Noninfectious gastroenteritis (1 source) Gastroenteritis; Translations: [Noninfective gastroenteritis and colitis, unspecified] Episodic Nonspecific chest pain (3 sources) Chest pain; Translations: [Chest pain, unspecified] 06-03-2017 Episodic Open wounds of extremities (3 sources) Laceration of finger; Translations: [Laceration without foreign body of unspecified finger without damage to nail, initial encounter] 04-23-2021 Episodic Other upper respiratory disease (1 source) Pain in throat; Translations: [Pain in throat] Episodic Other upper respiratory infections (1 source) Viral upper respiratory tract infection; Translations: [Acute upper respiratory infection, unspecified] 11-25-2022 Episodic Skin and subcutaneous tissue infections (3 sources) Cellulitis of upper limb; Translations: [Cellulitis of right upper limb] 11-03-2018 Episodic Spondylosis; intervertebral disc disorders; other back problems (1 source) Dorsalgia, unspecified; Translations: [Dorsalgia, unspecified] Onset: 07-01-2022 Episodic Sprains and strains (2 sources) Strain of thoracic region; Translations: [Strain of muscle and tendon of unspecified wall of thorax, initial encounter] 06-26-2022 Episodic Superficial injury; contusion (5 sources) Cat scratch injury; Translations: [Abrasion of left hand, initial encounter] Onset: 12-31-2021 Episodic Past or Other Problems Problem Classification Problem Date Documented Da te Episodic/Chronic Other connective tissue disease (2 sources) Ganglion of wrist; Translations: [Ganglion, left wrist] Onset: 10-17-2016 10-17-2016 Episodic Other non-traumatic joint disorders (2 sources) Pain in wrist; Translations: [Pain in left wrist] Onset: 10-17-2016 10-17-2016 Episodic Results Test Name Value Interpretation Reference Range [facility] [facility] K[facility] ([id number]) 1995 M Date Time Provider Department 11/26/22 LIZETTE CORDON [facility] During your visit today, we recorded the following information about you: Lizette Cordon APRN.CNP 11/26/2022 7:15 AM Signed Please notify of negative covid test. Continue comfort measures for symptoms as you would for a cold. Any worsening symptoms follow up with PCP or ER. Lizette Cordon APRN.Stephanie Goodman MA 11/26/2022 10:53 AM Signed Left VM instructing patient to return call to receive results. MLACOM Draper Stephanie, RN 11/26/2022 10:59 AM Signed Patient notified of results and provider's instructions. Patient verbalizes understanding. Kim Moreira RN Allergies As of Date: 11/26/2022 (No Known Allergies) Date Reviewed: 11/25/2022 Reviewed by: Karin Pinedo LPN - Fully Assessed Reason for Visit: Results [95] Problem List As Of Date: 11/26/2022 (None) Encounter Status:Closed by KIM MOREIRA on 11/26/22 [facility] CNOVon 11-25-2022 CNOV Office Visit ([facility] ) KAMRAN LOPEZ ([id number]) 1995 M Date Time Provider Department 11/25/22 11:15 AM SIRIA TORREZ During your visit today, we recorded the following information about you: Temperature Pulse Respiration Blood pressure 98 degrees 103/minute 16/minute 132/80 Weight 63.6 kg Siria Torrez, 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 Kamran Lopez is a 27 year old male who presents with URI symptoms x 1 week, today he woke up with a headache and could not go to work. He rates his headache pain 6/10. He took tylenol and ibuprofen at home. He denies any known sick contacts. Review of Systems Constitutional: Negative for chills and fever. HENT: Positive for congestion. Negative for ear pain and sore throat. Respiratory: Positive for cough. Cardiovascular: Negative for chest pain. Neurological: Positive for headaches. BP 132/80 Pulse 103 Temp 36.7 ?C (98 ?F) (Tympanic) Resp 16 Wt 63.6 kg (140 lb 3.2 oz) SpO2 100% PAST MEDICAL HISTORY Diagnosis Date epidural hematoma Febrile seizure (HCC) Jaundice of Premature PAST SURGICAL HISTORY Procedure Laterality Date BRAIN SURGERY HX Ruptured arter after an accident/?? subdural ALLERGIES Patient has no known allergies. MEDICATIONS No prescriptions on file. FAMILY HISTORY Problem Relation Age of Onset Cancer Maternal Grandmother cervical other (myeloma [Other]) Maternal Grandfather Asthma Mother None Father Social History Tobacco Use Smoking status: Never Smokeless tobacco: Never Substance Use Topics Alcohol use: No Drug use: No Objective Physical Exam Vitals and nursing note reviewed. Constitutional: Appearance: Normal appearance. HENT: Right Ear: Tympanic membrane, ear canal and external ear normal. Left Ear: Tympanic membrane, ear canal and external ear normal. Nose: Nose normal. Mouth/Throat: Mouth: Mucous membranes are moist. Pharynx: Oropharynx is clear. Uvula midline. No oropharyngeal exudate or posterior oropharyngeal erythema. Cardiovascular: Rate and Rhythm: Normal rate and regular rhythm. Heart sounds: Normal heart sounds. Pulmonary: Effort: Pulmonary effort is normal. No respiratory distress. Breath sounds: Normal breath sounds. No wheezing or rales. Musculoskeletal: Cervical back: Neck supple. Lymphadenopathy: Cervical: No cervical adenopathy. Skin: General: Skin is warm and dry. Findings: No erythema or rash. Neurological: Mental Status: He is alert. ASSESSMENT/PLAN: 1. Headache, unspecified headache type - ICD9: 784.0, ICD10: R51.9 (primary diagnosis) - KETOROLAC 60 MG/2 ML INTRAMUSCULAR SOLUTION - patient states headache has improved with Toradol injection. 2. Viral URI - ICD9: 465.9, ICD10: J06.9 - Discussed viral etiology and rationale for treatment. - Symptomatic treatment with prn analgesia - Supportive care with fluids and rest - COVID NAAT, UPPER RESPIRATORY, ROUTINE - Follow-up with your PCP in 3-5 days if symptoms have not improved or sooner if symptoms worsen - Discussed red flags and need for immediate medical evaluation if any occur. - Discussed supportive care treatment with fluids, rest and analgesia. - Discussed expected course of illness IGNACIO Bender Kathy, APRN.CNP 11/25/2022 11:22 AM Signed ASSESSMENT/PLAN: 1. Headache, unspecified headache type - ICD9: 784.0, ICD10: R51.9 (primary diagnosis) - KETOROLAC 60 MG/2 ML INTRAMUSCULAR SOLUTION 2. Viral URI - ICD9: 465.9, ICD10: J06.9 - Discussed viral etiology and rationale for treatment. - Symptomatic treatment with prn analgesia - Supportive care with fluids and rest - COVID NAAT, UPPER RESPIRATORY, ROUTINE - Follow-up with your PCP in 3-5 days if symptoms have not improved or sooner if symptoms worsen - Discussed red flags and need for immediate medical evaluation if any occur. - Discussed supportive care treatment with fluids, rest and analgesia. - Discussed expected course of illness Siria Torrez APRN.CNP Allergies As of Date: 11/25/2022 (No Known Allergies) Date Reviewed: 11/25/2022 Reviewed by: Karin Pinedo LPN - Fully Assessed Reason for Visit: Headache [52] Cmt: FAULKNER x 1 day and congestion x 1 week Primary Visit Diagnosis:Headache, unspecified headache type [R51.9] Other Visit Diagnosis:Viral URI [J06.9] Order(s):[] keTORolac 60 mg injection (Toradol)Disp: Rfl: COVID NAAT, UPPER RESPIRATORY, ROUTINE [SQCOVID] Order #: [id number]. #:[id number] Problem List As Of Date: 11/25/2022 (None) Other instructions from your clinician: ASSESSMENT/PLAN: 1. Headache, unspecified headache type - ICD9: 784.0, ICD10: R51.9 (primary diagnosis) - KETOROLAC 60 MG/2 ML INTRAMUSCULAR SOLUTION 2. Viral URI - IC (more content not included)... Normal [facility] COVID NAAT, UPPER RESPIRATOR Y, ROUTINEon 11-25-2022 SARS-CoV-2 (COVID-19) RNA RICARDO+probe Ql (Resp) Not detected See comment [facility] SARS-CoV-2 RNA Resp Ql RICAROD+p robeon 11-25-2022 SARS-CoV-2 (COVID-19) RNA RICARDO+probe Ql (Resp) COVID 19 RESULT: Not detected The method used is RT-PCR or an equivalent NAAT method. Reference Range (the expected result in uninfected individuals): Not detected Normal [facility] Comment on above: Performed By: #### 9 [id number] #### [facility] CLIA [id number] [address] [place] [address] OF [facility] Basic Metabolic Profile (BMP )on 06-26-2022 BUN/CRE 14.6 RATIO Normal 10-20 [facility] Comment on above: Performed By: #### L 500.2500 #### [facility] [address] [place], [address] CA,Total 9.3 mg/dL Normal 8.5-10.1 [facility] Comment on above: Performed By: #### L 500.2500 #### [facility] [address] [place], [address] Chloride [Moles/Vol] 106 mmol/L Normal 98-[address] [facility] Comment on above: Performed By: #### L 500.2500 #### [facility] [address] [place], [address] CO2 [Moles/Vol] 25.0 mmol/L Normal 21.0-32.0 [facility] Comment on above: Performed By: #### L 500.2500 #### [facility] [address] [place], [address] Creatinine [Mass/Vol] 0.96 mg/dL Normal 0.70-1.30 [facility] Comment on above: Result Comment: The validity of the calculated GFR GFRAA in patients over 70 years has not been determined. Clinical correlation is essential. Performed By: #### L 500.2500 #### [facility] [address] [place], [address] ECRCL 104.90 ml/min Normal [facility] Comment on above: Performed By: #### L 500.2500 #### [facility] [address] [place], [address] EST GFR - AA 123 mL/min Normal >60 [facility] Comment on above: Result Comment: Afri can Niuean GFR Calc Performed By: #### L 500.2500 #### [facility] [address] [place], [address] GAP 9 Normal 5-15 [facility] Comment on above: Performed By: #### L 500.2500 #### [facility] [address] [place], [address] GFR/1.73 sq M.predicted among non-blacks MDRD (S/P/Bld) [Vol rate/Area] 102 mL/min/{1.73_m2} Normal >60 [facility] Comment on above: Result Comment: Non- GFR Calc Performed By: #### L 500.2500 #### [facility] [address] [place], [address] Glucose [Mass/Vol] 97 mg/dL Normal 74-[address] [facility] Comment on above: Performed By: #### L 500.2500 #### [facility] [address] [place], [address] Potassium [Moles/Vol] 3.1 mmol/L Low 3.5-5.1 [facility] Comment on above: Performed By: #### L 500.2500 #### [facility] [address] [place], [address] Sodium [Moles/Vol] 140 mmol/L Normal 136-[address] [facility] Comment on above: Performed By: #### L 500.2500 #### [facility] [address] [place], [address] Urea nitrogen [Mass/Vol] 14 mg/dL Normal 7-18 [facility] Comment on above: Performed By: #### L 500.2500 #### [facility] [address] [place], [address] Basophil percentageOrdered B y: Dr. Snyder on 06-26-2022 Chloride [Moles/Vol] 106 mmol/L 98-[address] [facility] Glucose [Mass/Vol] 97 mg/dL 74-[address] [facility] Potassium [Moles/Vol] 3.1 mmol/L 3.5-5.1 [facility] Sodium [Moles/Vol] 140 mmol/L 136-[address] [facility] Bedside Glucoseon 06-26-2022 FINGERSTICK GLU 97 mg/dL Normal 74-106 [facility] Comment on above: Result Comment: NITIN SALEH OF PATIENT CARE PER NURSING PROTOCOL Performed By: #### L 501.080 #### [facility] [address] [facility] [place], [place], [address] Emergency Department Summary on 06-26-2022 Emergency Department Summary [facility] Medical Records Department [address] [place] [address] Emergency Department Summary 06/26/22 MR#: [id number] Acct: [id number] Name: KAMRAN LOPEZ Rep #: [id number] : 1995 27 From: Kasi Snyder MD PCP: Care Physician,No Primary Status:REG ER Location: ED HPI History of Present Illness Chief Complaint: Back Detail of Chief Complaint: For her back pain for the past 3 days and difficulty sleeping Informant: patient Onset/Context/Timing Onset: Days (3 days) Context: Gradual Onset Injury: lifting, twisting, bending, direct trauma, fall, assault and repetitive motion Timing: Continuous and Waxes and wanes Quality: Dull and Aching Location: Thoracic (Left side over the distal portion of the latissimus dorsi muscle) Current Severity: Mild Maximum Severity: Severe Worsened by: improves with Movement and Bending Relieved by: Nothing Associated Symptoms Associated Symptoms: - (Patient does endorse polyuria, polydipsia, nocturia); Negative for Numbness, Tingling, Radiation to Right Leg, Radiation to Left Leg, Fever, Abdominal Pain, Dysuria, Unable to Ambulate, Unable to Transfer, Urinary Retention, Urinary Incontinence, Constipation or Fecal Incontinence Narrative Narrative: Patient is a 27-year-old male who appears uncomfortable. He is thin. He is 5 pounds under his normal weight. Because of left-sided back pain that is located over the lower dorsal spine region on the left. Movement exacerbates his pain. He denies cardiac respiratory symptoms. He does endorse polyuria, polydipsia and nocturia. There is family history of diabetes. He denies blurred vision. He has not been tested for diabetes. He denies history of renal ureterolithiasis. He denies radiation of the pain to his abdomen or groin region. He states he drove himself to the hospital. He states he is able to get a ride home. Patient denies fever, chills night sweats. Patient denies recent dental procedures. Patient denies recent infectious symptoms. Prior similar symptoms: Yes (He states this is worse.) Recent Illness/Hospitalizatio n: No PFSH PFSH Home Medications cephalexin 500 mg capsule 500 mg PO [id number] #28 caps 11/02/18 [Rx Last Taken Unknown] ibuprofen 600 mg tablet 600 mg PO Q6H PRN PRN Pain #20 tabs 11/02/18 [Rx Last Taken Unknown] sulfamethoxazole 800 mg-trimethoprim 160 mg tablet 1 ea PO BID #14 tabs 11/02/18 [Rx Last Taken Unknown] hydrocodone-acetaminop hen 5-325mg 5mg-325mg 1 tab PO Q6H PRN PRN Pain 3 days #10 TABLETS 06/26/22 [Rx Last Taken Unknown] naproxen 500 mg tablet (Naprosyn) 500 mg PO BID PRN pain #14 tabs 06/26/22 [Rx Last Taken Unknown] Allergy/AdvReac Type Severity Reaction Status Date / Time No Known Allergies Allergy Verified 06/26/22 14:25 Surgical History no surgical history no surgical history Social History (Updated 06/26/22 @ 14:[address] Kasi Snyder MD) Smoking Status: Current every day smoker tobacco type: cigarettes substance use type: does not use ROS ROS ED Constitutional Constitutional ED: Reports weight loss; Denies chills, fever(s), subjective or sweats Eyes Eyes: Denies blurry vision, change in vision or diplopia ENT ENT ED: Denies ear pain, rhinorrhea or sore throat Cardiovascular Cardiovascular: Denies chest pain, orthopnea, palpitations or paroxysmal nocturnal dyspnea Respiratory/Chest Respiratory/Chest: Denies dyspnea, dyspnea on exertion, orthopnea or paroxysmal nocturnal dyspnea Gastrointestinal Gastrointestinal: Denies abdominal pain, diarrhea, melena, nausea or vomiting Genitourinary Genitourinary ED: Denies dysuria, hematuria or urinary frequency Musculoskeletal Musculoskeletal: Reports back pain; Denies arthralgias, myalgias or neck pain Integumentary Denies abscess, Abrasions or rash Neurologic Neurologic: Denies headache(s), paresthesias or weakness Endocrine Endocrinology: Reports polydipsia and polyuria; Denies cold intolerance or heat intolerance Hematologic/Lymphatic Hematologic/Lymphatic: Denies easy bleeding or easy bruising EXAM Physical Exam Const Vital Signs: 06/26/22 14:23 Temperature 97.3 F L Temperature Source Temporal Pulse Rate 99 Respiratory Rate 16 Blood Pressure 131/89 H Blood Pressure Mean 103 Pulse Ox 98 Oxygen Delivery Method Room Air Positive well developed Constitutional Narrative: Thin appearing gentleman who is in discomfort. Patient developed goosebumps because of severe pain when I pushed on the left latissimus dorsi muscles. He has peridorsal tenderness. General Appearance ED: well developed HEENT Reports dry mucous membranes HEENT Narrative: Head is atraumatic normocephalic. Ears normal. Nares patent. Mouth ED: Yes dry mucous membranes Mouth: dry mucous membranes Eyes PERRL and EOMs intact bilaterally General Eye E (more content not included)... Normal [facility] Glucose Glucometer (BldC) [M ass/Vol]Ordered By: Dr. Snyder on 06-26-2022 Glucose [Mass/Vol] 97 mg/dL 74-[address] [facility] Comment on above: MANAGEMENT OF PATIEN T CARE PER NURSING PROTOCOL Laboratory - Chemistry and C hemistry - challengeOrdered By: Dr. Snyder on 06-26-2022 CO2 [Moles/Vol] 25.0 mmol/L 21.0-32.0 [facility] Urea nitrogen/Creatinine [Mass ratio] 14.6 mg/mg 10-20 [facility] No Panel InformationOrdered By: Dr. Snyder on 06-26-2022 Estimated Creatinine Clearance Calc 104.90 ml/min [facility] Estimated GFR (MDRD) Amer 123 mL/min >60 [facility] Comment on above: GFR Calc Estimated GFR (MDRD) Non-Af Amer 102 mL/min >60 [facility] Comment on above: Non- GFR Calc Serum or plasma calcium radha urement (mass/volume)Ordered By: Dr. Snyder on 06-26-2022 Calcium [Mass/Vol] 9.3 mg/dL 8.5-10.[address] [facility] Serum or plasma creatinine m easurement (mass/volume)Ordered By: Dr. Snyder on 06-26-2022 Creatinine [Mass/Vol] 0.96 mg/dL 0.70-1.30 [facility] Comment on above: The validity of the calculated GFR & GFRAA in patients over 70 years has not been determined. Clinical correlation is essential. Serum or plasma urea nitroge n measurement (mass/volume)Ordered By: Dr. Snyder on 06-26-2022 Urea nitrogen [Mass/Vol] 14 mg/dL 7-18 [facility] Thin prep Papanicolaou smear with manual screeningOrdered By: Dr. Snyder on 06-26-2022 Thin prep Papanicolaou smear with manual screening 9 5-15 [facility] CNOVon 05-22-2022 CNOV Office Visit ([facility] ) KAMRAN LOPEZ ([id number]) 1995 M Date Time Provider Department 05/22/22 9:15 AM ROBSON GARCIA [facility] During your visit today, we recorded the following information about you: Temperature Pulse Respiration Blood pressure 98.2 degrees 137/minute 20/minute 128/64 Weight 62.3 kg Robson Garcia MD 05/22/2022 9:26 AM Signed Patient presents with: Diarrhea: Pt reported N/V, throat pain, swelling x3 days. HPI: Feeling sick for 4 days. Exposed to strep throat and stomach illness at work. Positive symptoms: Sore throat, Nausea, Vomiting, Diarrhea, mild Rhinorrhea, hot and cold, headache Negative symptoms: Cough, Fever, blood in stool, focal abdominal pain, OTC: excedrin, pepto MEDICATIONS: No current outpatient medications on file. No current facility-administered medications for this visit. ALLERGIES: ALLERGIES No Known Allergies VITALS: BP 128/64 Pulse (!) 137 Temp 36.8 ?C (98.2 ?F) (Tympanic) Resp 20 Wt 62.3 kg (137 lb 6.4 oz) SpO2 97% PHYSICAL EXAM: GEN: mildly ill appearing HEENT: PERRL, EOMI, conjunctiva clear Throat: moist mucous membranes, mild erythema, no exudate Neck: supple, no thyromegaly, no lymphadenopathy HEART: regular rate and rhythm, no murmurs LUNGS: clear to auscultation, no wheezes or crackles, no increased WOB ABD: Soft, non-distended, non-tender, no masses ASSESSMENT/PLAN: 1. Gastroenteritis - ICD9: 558.9, ICD10: K52.9 (primary diagnosis) 2. Throat pain - ICD9: 784.1, ICD10: R07.0 - STREP A MOLECULAR (POC) - negative. Infectious gastroenteritis. Hydration with fluids encouraged. Resume normal solid intake as tolerated. Hand hygiene to reduce transmission. Follow up in the ER with signs of dehydration, increasing abdominal pain, high fever, or blood in vomit or stool. Robson Garcia MD Allergies As of Date: 05/22/2022 (No Known Allergies) Date Reviewed: 05/22/2022 Reviewed by: Liliya Cox LPN - Fully Assessed Reason for Visit: Diarrhea [35] Cmt: Pt reported N/V, throat pain, swelling x3 days. Primary Visit Diagnosis:Gastroenteri tis [K52.9] Other Visit Diagnosis:Throat pain [R07.0] Order(s):STREP A MOLECULAR (POC) [6201634] Order #: [id number]. #:[id number] Problem List As Of Date: 05/22/2022 (None) Letter Text Encounter Status:Closed by ROBSON GARCIA on 05/22/[address] [facility] STREP A MOLECULAR (POC)on Procedural Control Valid [facility] Strep A (POCT) Negative Negative [facility] Emergency Department Summary on 12-22-2021 Emergency Department Summary [facility] Medical Records Department [address] [place] [address] Emergency Department Summary 12/22/21 MR#: [id number] Acct: [id number] Name: KAMRAN LOPEZ Rep #: [id number] : 1995 26 From: Quirino Majano MD PCP: Care Physician,No Primary Status:DEP ER Location: ED ADDENDUM by Dr. Quirino Majano MD on 12/22/21 at 2120 I did check the radiology read, they suspect a subtle oblique fracture at the base of the fifth metacarpal bone. I called the patient back and talk to him I gave him the information to or [facility] and he will make an appointment tomorrow morning. 12/22/212120 Cosigner Signature (if applicable): cc: No Primary Care Physician * Signed HPI History of Present Illness Chief Complaint: Upper Extremity Injury Narrative Narrative: Patient presents with right hand pain after mechanical fall yesterday. No hand injury, no wrist injury no other injury. PFSH PFSH Home Medications cephalexin 500 mg capsule 500 mg PO [id number] #28 caps 11/02/18 [Rx Last Taken Unknown] ibuprofen 600 mg tablet 600 mg PO Q6H PRN PRN Pain #20 tabs 11/02/18 [Rx Last Taken Unknown] sulfamethoxazole 800 mg-trimethoprim 160 mg tablet 1 ea PO BID #14 tabs 11/02/18 [Rx Last Taken Unknown] Allergy/AdvReac Type Severity Reaction Status Date / Time No Known Allergies Allergy Verified 12/22/21 16:18 Social History Smoking Status: Current every day smoker tobacco type: cigarettes ROS ROS ED ROS Narrative Past medical history: none Medications: Reviewed Social history: Noncontributory Review of systems: Musculoskeletal: Right hand pain as in HPI Skin: No abrasions or lacerations Neurological: No weakness or paresthesias Hematologic: No easy bleeding or easy bruising EXAM Physical Exam Narrative Exam Narrative: Physical exam General: Patient does not appear in significant distress . Head: Normocephalic, Atraumatic Neck: No C-spine tenderness Cardiovascular: Normal distal pulses Back: Nontender, Normal Inspection. Extremities: Right palm has tenderness over the hypothenar region. Normal strength sensation and full range of motion no wrist pain Skin: No abrasions, no lacerations Neurological: Normal strength and sensation Const Vital Signs: 12/22/21 16:16 Temperature 98 F Temperature Source Temporal Pulse Rate 112 H Respiratory Rate 16 Blood Pressure 119/89 H Blood Pressure Mean 99 Pulse Ox 99 Oxygen Delivery Method Room Air MDM MDM Radiography Diagnostic Testing: Right hand x-ray read by me is normal Treatment and Re-Evaluation Narrative: Patient has a normal x-ray I will discharge with reassurance I do not believe he needs a splint Discharge Plan Triage Chief Complaint: Upper Extremity Injury ED Provider: Quirino Majano Dx/Rx/DC Orders Clinical Impression: Fall, Contusion of hand Instructions: Bone Contusion Prescriptions: No Action sulfamethoxazole-trime thoprim 1 EACH tablet 1 ea PO BID Qty: 14 0RF cephalexin 500 MG capsule 500 mg PO [id number] Qty: 28 0RF ibuprofen 600 MG tablet 600 mg PO Q6H PRN PRN (Reason: Pain) Qty: 20 0RF Primary Care Provider: Care Physician,No Primary Referrals: Care Physician,No Primary [Primary Care Provider] - 3-5 Days Disposition Disposition: Home, Self Care What to do if you have Problems For any increased pain, shortness of breath, bleeding, nausea or vomiting, chest pain, or any unexpected problems, contact your Primary Care Provider. Call [facility] ([phone]) or report to the closest Emergency Room. Call 911 if necessary. 12/22/21 1652 Cosigner Signature (if applicable): CC: No Primary Care Physician Signed Normal [facility] Hand Min 3 Viewson 2 Hand Min 3 Views [facility] Imaging Services [address] [place] [address] Hand Min 3 Views MR#: [id number] Acct: [id number] Name: KAMRAN LOPEZ Rep #: [id number] : 1995 M 26 From: Wally Mccoy MD PCP: Care Physician,No Primary Status: DEP ER Study: Hand Min 3 Views Date of Exam: 12/22/21 Exam# [id number] Ordering Dr: Provider,Ed P. STUDY: X-RAY - RIGHT HAND REASON FOR EXAM: Male, 26 years old. INJURY TECHNIQUE: 3 view(s) of the hand. COMPARISON: None. FINDINGS: Normal radiocarpal articulation. Normal distal radioulnar joint. Normal visualized carpal bones. Normal carpal articulations Normal carpometacarpal articulation of the thumb. Normal second through fifth carpometacarpal joints. Suspect subtle oblique fracture the base of the fifth metacarpal bone. Normal metacarpophalangeal joint of the thumb. Normal interphalangeal joint of the thumb. Normal proximal and distal phalanges of the thumb. Normal metacarpophalangeal joints of the second through fifth fingers. Normal proximal and distal interphalangeal joints of the second through fifth fingers. Normal phalanges of the second through fifth fingers. The soft tissue structures are unremarkable. RAD/Hand Min 3 Views IMPRESSION: Suspect subtle oblique fracture the base of the fifth metacarpal bone. Electronically Signed: Wally Mccoy MD at 17:41 EDT , CC: ED PHYSICIAN PROVIDER; No Primary Care Physician Strike Planning Applications: Signed Normal [facility] Office Visit: [facility]: Mckenna garcia p eitan 10-17-2016 Documentation of current medications (procedure) Done Invalid Interpretation Code [facility] Work Phone: Fall risk assessment No Invalid Interpretation Code [facility] Work Phone: [phone] Smoking cessation education (procedure) Smoking cessation education (procedure) Invalid Interpretation Code [facility] Work Phone: Tobacco use [facility] Current every day smoker Invalid Interpretation Code [facility] Work Phone: Vital Signs Date Time Vital Sign Value Performing Clinician Facility 12-08-2022 07:35-0400 Body height 190.5 cm [facility] 12-08-2022 07:35-0400 Body mass index (BMI) [Ratio] 17.7 kg/m2 [facility] 12-08-2022 07:35-0400 Body temperature 97.2 [degF] [facility] 12-08-2022 07:35-0400 Body weight 64.41 kg [facility] 12-08-2022 07:35-0400 Diastolic blood pressure 91 mm[Hg] [facility] 12-08-2022 07:35-0400 Heart rate 105 /min [facility] 12-08-2022 07:35-0400 Respiratory rate 18 /min [facility] 12-08-2022 07:35-0400 SaO2% (BldA) [Mass fraction] 96 % [facility] 12-08-2022 07:35-0400 Systolic blood pressure 133 mm[Hg] [facility] 11-25-2022 11:06-0400 Body temperature 98.01 [degF] Siria Praisler-Wood LOGISTICS ANALYTICS MANAGER.LAPPING MACHINE OPERATOR Work Phone: [facility] 11-25-2022 11:06-0400 Body weight 63.59 kg Siria Praisler-Wood LOGISTICS ANALYTICS MANAGER.LAPPING MACHINE OPERATOR Work Phone: [facility] 11-25-2022 11:06-0400 Diastolic blood pressure 80 mm[Hg] Siria Praisler-Wood LOGISTICS ANALYTICS MANAGER.LAPPING MACHINE OPERATOR Work Phone: [facility] 11-25-2022 11:06-0400 Heart rate 103 /min Siria Praisler-Wood LOGISTICS ANALYTICS MANAGER.LAPPING MACHINE OPERATOR Work Phone: [facility] 11-25-2022 11:06-0400 Respiratory rate 16 /min Siria Praisler-Wood LOGISTICS ANALYTICS MANAGER.LAPPING MACHINE OPERATOR Work Phone: [facility] 11-25-2022 11:06-0400 SaO2% (BldA) [Mass fraction] 100 % Siria Torrez LOGISTICS ANALYTICS MANAGER.LAPPING MACHINE OPERATOR Work Phone: [facility] 11-25-2022 11:06-0400 Systolic blood pressure 132 mm[Hg] Siria Torrez LOGISTICS ANALYTICS MANAGER.LAPPING MACHINE OPERATOR Work Phone: [facility] 06-26-2022 14:23-0400 Body height 190.5 cm [facility] 06-26-2022 14:23-0400 Body mass index (BMI) [Ratio] 17.4 kg/m2 [facility] 06-26-2022 14:23-0400 Body temperature 97.3 [degF] [facility] 06-26-2022 14:23-0400 Body weight 63.04 kg [facility] 06-26-2022 14:23-0400 Diastolic blood pressure 89 mm[Hg] [facility] 06-26-2022 14:23-0400 Heart rate 99 /min [facility] 06-26-2022 14:23-0400 Respiratory rate 16 /min [facility] 06-26-2022 14:23-0400 SaO2% (BldA) [Mass fraction] 98 % [facility] 06-26-2022 14:23-0400 Systolic blood pressure 131 mm[Hg] [facility] 05-22-2022 09:03-0400 Body temperature 98.2 [degF] Robson Garcia MD Work Phone: [facility] 05-22-2022 09:03-0400 Body weight 62.32 kg Robson Garcia MD Work Phone: [facility] 05-22-2022 09:03-0400 Diastolic blood pressure 64 mm[Hg] Robson Garcia MD Work Phone: [facility] 05-22-2022 09:03-0400 Heart rate 137 /min Robson Garcia MD Work Phone: [facility] 05-22-2022 09:03-0400 Respiratory rate 20 /min Robson Garcia MD Work Phone: [facility] 05-22-2022 09:03-0400 SaO2% (BldA) [Mass fraction] 97 % Robson Garcia MD Work Phone: [facility] 05-22-2022 09:03-0400 Systolic blood pressure 128 mm[Hg] Robson Garcia MD Work Phone: [facility] 12-22-2021 16:16-0400 Body height 190.5 cm [facility] Work Phone: 12-22-2021 16:16-0400 Body mass index (BMI) [Ratio] 16.9 kg/m2 [facility] Work Phone: 12-22-2021 16:16-0400 Body temperature 98 [degF] [facility] Work Phone: 12-22-2021 16:16-0400 Body weight 61.23 kg [facility] Work Phone: 12-22-2021 16:16-0400 Diastolic blood pressure 89 mm[Hg] [facility] Work Phone: 12-22-2021 16:16-0400 Heart rate 112 /min [facility] Work Phone: 12-22-2021 16:16-0400 Respiratory rate 16 /min [facility] Work Phone: 12-22-2021 16:16-0400 SaO2% (BldA) [Mass fraction] 99 % [facility] Work Phone: 12-22-2021 16:16-0400 Systolic blood pressure 119 mm[Hg] [facility] Work Phone: 09-25-2021 09:31-0400 Body temperature 97.81 [degF] Robson Garcia MD Work Phone: [facility] 09-25-2021 09:31-0400 Body weight 63.05 kg Robson Garcia MD Work Phone: [facility] 09-25-2021 09:31-0400 Diastolic blood pressure 62 mm[Hg] Robson Garcia MD Work Phone: [facility] 09-25-2021 09:31-0400 Heart rate 98 /min Robson Garcia MD Work Phone: [facility] 09-25-2021 09:31-0400 Respiratory rate 16 /min Robson Garcia MD Work Phone: [facility] 09-25-2021 09:31-0400 SaO2% (BldA) [Mass fraction] 99 % Robson Garcia MD Work Phone: [facility] 09-25-2021 09:31-0400 Systolic blood pressure 100 mm[Hg] Robson Garcia MD Work Phone: [facility] 09-07-2021 15:30-0400 Body temperature 97.7 [degF] Robson Garcia MD Work Phone: [facility] 09-07-2021 15:30-0400 Body weight 62.6 kg Robson Garcia MD Work Phone: [facility] 09-07-2021 15:30-0400 Diastolic blood pressure 62 mm[Hg] Robson Garcia MD Work Phone: [facility] 09-07-2021 15:30-0400 Heart rate 68 /min Robson Garcia MD Work Phone: [facility] 09-07-2021 15:30-0400 Respiratory rate 16 /min Robson Garcia MD Work Phone: [facility] 09-07-2021 15:30-0400 SaO2% (BldA) [Mass fraction] 99 % Robson Garcia MD Work Phone: [facility] 09-07-2021 15:30-0400 Systolic blood pressure 102 mm[Hg] Robson Garcia MD Work Phone: [facility] 10-17-2016 11:22-0400 BMI (Body Mass Index) 17.76 kg/m2 [facility] Work Phone: 10-17-2016 11:22-0400 Body Temperature 99.1 [degF] [facility] Work Phone: 10-17-2016 11:22-0400 BP Diastolic 82 mm[Hg] [facility] Work Phone: 10-17-2016 11:22-0400 BP Systolic 118 mm[Hg] [facility] Work Phone: 10-17-2016 11:22-0400 Height 185.42 cm [facility] Work Phone: 10-17-2016 11:22-0400 Pulse (Heart Rate) 75 /min [facility] Work Phone: 10-17-2016 11:22-0400 Respiratory Rate 12 /min [facility] Work Phone: 10-17-2016 11:22-0400 Weight 61.05 kg [facility] Work Phone: Encounters Encounter Date Encounter Type Care Provider Facility Start: 12-08-2022 End: 12-08-2022 Emergency department patient visit [facility] Work Phone: Start: 11-25-2022 End: 11-25-2022 ambulatory Facility:[facility] Start: 11-25-2022 End: 11-25-2022 Patient encounter procedure Siria Torrez APRN.LAPPING MACHINE OPERATOR Work Phone: [facility] Comment on above: Headache, unspecifie d headache type (Primary Dx); Viral URI Start: 06-26-2022 End: 06-26-2022 Emergency department patient visit Kasi Snyder Facility:[facility] Start: 06-26-2022 End: 06-26-2022 Emergency department patient visit [facility] Start: 05-22-2022 End: 05-22-2022 ambulatory Facility:[facility] Start: 05-22-2022 End: 05-22-2022 Patient encounter procedure Robson Garcia MD Work Phone: [facility] Comment on above: Gastroenteritis (Lissett sarahy Dx); Throat pain Start: 12-22-2021 End: 12-22-2021 Emergency department patient visit Quirino Majano Facility:[facility] Start: 12-22-2021 End: 12-22-2021 Emergency department patient visit [facility] Start: 09-26-2021 Telephone encounter Lizette Cordon APRN.LAPPING MACHINE OPERATOR Work Phone: [facility] Comment on above: Results Start: 09-25-2021 End: 09-25-2021 Patient encounter procedure Robson Garcia MD Work Phone: [facility] Comment on above: Influenza-like illne ss (Primary Dx) Start: 09-07-2021 End: 09-07-2021 Patient encounter procedure Robson Garcia MD Work Phone: [facility] Comment on above: Cat scratch of hand, left, initial encounter (Primary Dx) Procedures Date Procedure Procedure Detail Performing Clinician Start: 11-25-2022 Sars-cov-2 detection by dna/rna Siria Torrez APRN.LAPPING MACHINE OPERATOR Work Phone: Start: 05-22-2022 STREP A MOLECULAR (POC) Malathi Cummins PA-C Work Phone: Plan of Treatment Date Care Activity Detail Author Start: 12-08-2022 [facility] Start: 10-24-2022 Influenza vaccination Influenza Vacc ine (#1) [facility] Start: 02-23-2022 DEPRESSION ASSESSMENT DEPRESSION ASS ESSMENT [facility] Start: 12-22-2021 Plain x-ray of hand Hand Min 3 Views [facility] Work Phone: Start: 12-22-2021 XR Hand GE [address] [facility] Work Phone: Start: 10-24-2021 Influenza vaccination INFLUENZA (#1) [facility] Start: 09-25-2021 End: 10-09-2021 SARS-CoV-2 (COVID-19) RNA [Presence] in Respiratory specimen by RICARDO with probe detection [facility] Work Phone: Comment on above: Expected: 09/25/2021 , Expires: 10/09/2021 Start: 10-17-2016 End: 10-17-2016 Appointment Appointment [facility] Work Phone: Start: 10-17-2016 End: 10-17-2016 X-ray exam of wrist X-Ray, Wrist [facility] Work Phone: Start: 2016 Urine microalbumin profile [facility] Start: 04-30-2015 HEPATITIS C SCREENING HEPATITIS C SC REENING [facility] Start: 04-30-2015 HIV SCREENING HIV SCREENING [facility] Start: 04-30-2011 PEDS TO ADULT TRANSI TION ANNUAL ASSESSMENT PEDS TO ADULT TRANSITION ANNUAL ASSESSMENT [facility] Start: 2009 Adult depression screening assessment DEPRESSION SCREENING [facility] Start: 2009 PEDS TO ADULT TRANSI TION INITIAL DISCUSSION PEDS TO ADULT TRANSITION INITIAL DISCUSSION [facility] Start: 2008 HPV VACCINE (1 - Mal e 2-dose series) HPV VACCINE (1 - Male 2-dose series) [facility] Start: 04-30-2007 MENINGOCOCCAL B: Consider based on risk (1 of 2 - Risk Bexsero 2-dose series) MENINGOCOCCAL B: Consider based on risk (1 of 2 - Risk Bexsero 2-dose series) [facility] Start: 2006 HPV Vaccine (1 - Mal e 2-dose series) HPV Vaccine (1 - Male 2-dose series) [facility] Start: 1997 COVID-19 VACCINE (#1) COVID-19 VACCI NE (#1) [facility] Start: 1997 HEPATITIS B (1 of 3 - 3-dose series) HEPATITIS B (1 of 3 - 3-dose series) [facility] Start: 1997 Hepatitis B Vaccine (1 of 3 - 3-dose series) Hepatitis B Vaccine (1 of 3 - 3-dose series) [facility] Patient Education [facility] Work Phone: Patient referral [facility] Work Phone: Payers Date Payer Category Payer Medicaid [facility] MEDICAID [facility] PLAN MEDICAID [place] [id number] 2022-Present [phone] [address] [place] [address] Medicaid [id number] 2022 Unknown [id number] 2021 Self-pay [id number] 2021 Unknown [id number] 2021 Medicaid UHC MEDICAID [employer] MEDICAID [id number] 2021-Present [phone] [address] [place] [address] Medicaid [id number] Unknown [facility] 4 [id number] Unknown [id number] Unknown [id number] Social History Date Type Detail Facility Start: 03-10-2012 Tobacco smoking stat us MTIS Never smoked tobacco [facility] Start: 03-10-2012 Tobacco use and exposure Smokeless tobacco non-user [facility] Start: 09-07-2021 End: 11-25-2022 Alcohol intake Current non-drinker of alcohol (finding) [facility] Start: 1995 Sex Assigned At Not on file [facility] Start: 09-15-2021 End: 09-25-2021 Exposure to SARS-CoV-2 (event) Not sure [facility] Work Phone: Start: 12-22-2021 End: 12-08-2022 Tobacco smoking status NHIS Unknown if ever smoked [facility] Start: 11-02-2018 Occasional [facility] Start: 11-02-2018 Marijuana;- [facility] Start: 1995 Sex Assigned At Male [facility] Start: 11-25-2022 History of Social function [facility] Start: 11-25-2022 Tobacco use panel [facility] Clinical Notes 09-07-2021 to 11-25-2022 Patient InstructionsSiria Torrez APRN.LAPPING MACHINE OPERATOR - 11/25/2022 11:18 AM EDT Note Date & Type Note Facility 11-25-2022 Note HNO ID: [id number] Author: Siria Torrez APRN.LAPPING MACHINE OPERATOR Service: ? Author Type: Nurse Practitioner Type: Progress Notes Filed: 11/25/2022 11:38 AM Note Text: Subjective Headache Pertinent negatives include no fever. Kamran Lopez is a 27 year old male who presents with URI symptoms x 1 week, today he woke up with a headache and could not go to work. He rates his headache pain 6/10. He took tylenol and ibuprofen at home. He denies any known sick contacts. Review of Systems Constitutional: Negative for chills and fever. HENT: Positive for congestion. Negative for ear pain and sore throat. Respiratory: Positive for cough. Cardiovascular: Negative for chest pain. Neurological: Positive for headaches. BP 132/80 Pulse 103 Temp 36.7 ?C (98 ?F) (Tympanic) Resp 16 Wt 63.6 kg (140 lb 3.2 oz) SpO2 100% PAST MEDICAL HISTORY Diagnosis Date epidural hematoma Febrile seizure (HCC) Jaundice of Premature PAST SURGICAL HISTORY Procedure Laterality Date BRAIN SURGERY HX Ruptured arter after an accident/?? subdural ALLERGIES Patient has no known allergies. MEDICATIONS No prescriptions on file. FAMILY HISTORY Problem Relation Age of Onset Cancer Maternal Grandmother cervical other (myeloma [Other]) Maternal Grandfather Asthma Mother None Father Social History Tobacco Use Smoking status: Never Smokeless tobacco: Never Substance Use Topics Alcohol use: No Drug use: No Objective Physical Exam Vitals and nursing note reviewed. Constitutional: Appearance: Normal appearance. HENT: Right Ear: Tympanic membrane, ear canal and external ear normal. Left Ear: Tympanic membrane, ear canal and external ear normal. Nose: Nose normal. Mouth/Throat: Mouth: Mucous membranes are moist. Pharynx: Oropharynx is clear. Uvula midline. No oropharyngeal exudate or posterior oropharyngeal erythema. Cardiovascular: Rate and Rhythm: Normal rate and regular rhythm. Heart sounds: Normal heart sounds. Pulmonary: Effort: Pulmonary effort is normal. No respiratory distress. Breath sounds: Normal breath sounds. No wheezing or rales. Musculoskeletal: Cervical back: Neck supple. Lymphadenopathy: Cervical: No cervical adenopathy. Skin: General: Skin is warm and dry. Findings: No erythema or rash. Neurological: Mental Status: He is alert. ASSESSMENT/PLAN: 1. Headache, unspecified headache type - ICD9: 784.0, ICD10: R51.9 (primary diagnosis) - KETOROLAC 60 MG/2 ML INTRAMUSCULAR SOLUTION - patient states headache has improved with Toradol injection. 2. Viral URI - ICD9: 465.9, ICD10: J06.9 - Discussed viral etiology and rationale for treatment. - Symptomatic treatment with prn analgesia - Supportive care with fluids and rest - COVID NAAT, UPPER RESPIRATORY, ROUTINE - Follow-up with your PCP in 3-5 days if symptoms have not improved or sooner if symptoms worsen - Discussed red flags and need for immediate medical evaluation if any occur. - Discussed supportive care treatment with fluids, rest and analgesia. - Discussed expected course of illness Siria Torrez APRN.[facility] 11-25-2022 Siria Han APRN.[facility] - 11/25/2022 11:22 AM EDT ASSESSMENT/PLAN: 1. Headache, unspecified headache type - ICD9: 784.0, ICD10: R51.9 (primary diagnosis) - KETOROLAC 60 MG/2 ML INTRAMUSCULAR SOLUTION 2. Viral URI - ICD9: 465.9, ICD10: J06.9 - Discussed viral etiology and rationale for treatment. - Symptomatic treatment with prn analgesia - Supportive care with fluids and rest - COVID NAAT, UPPER RESPIRATORY, ROUTINE - Follow-up with your PCP in 3-5 days if symptoms have not improved or sooner if symptoms worsen - Discussed red flags and need for immediate medical evaluation if any occur. - Discussed supportive care treatment with fluids, rest and analgesia. - Discussed expected course of illness Siria Torrez APRN.LAPPING MACHINE OPERATOR documented in this encounter [facility] 11-25-2022 History of Presen t illness Narrative Subjective Headache Pertinent negatives include no fever. Kamran Lopez is a 27 year old male who presents with URI symptoms x 1 week, today he woke up with a headache and could not go to work. He rates his headache pain 6/10. He took tylenol and ibuprofen at home. He denies any known sick contacts. Review of Systems Constitutional: Negative for chills and fever. HENT: Positive for congestion. Negative for ear pain and sore throat. Respiratory: Positive for cough. Cardiovascular: Negative for chest pain. Neurological: Positive for headaches. BP 132/80 Pulse 103 Temp 36.7 C (98 F) (Tympanic) Resp 16 Wt 63.6 kg (140 lb 3.2 oz) SpO2 100% PAST MEDICAL HISTORY Diagnosis Date epidural hematoma Febrile seizure (HCC) Jaundice of Premature PAST SURGICAL HISTORY Procedure Laterality Date BRAIN SURGERY HX Ruptured arter after an accident/?? subdural ALLERGIES Patient has no known allergies. MEDICATIONS No prescriptions on file. FAMILY HISTORY Problem Relation Age of Onset Cancer Maternal Grandmother cervical other (myeloma [Other]) Maternal Grandfather Asthma Mother None Father Social History Tobacco Use Smoking status: Never Smokeless tobacco: Never Substance Use Topics Alcohol use: No Drug use: No Objective Physical Exam Vitals and nursing note reviewed. Constitutional: Appearance: Normal appearance. HENT: Right Ear: Tympanic membrane, ear canal and external ear normal. Left Ear: Tympanic membrane, ear canal and external ear normal. Nose: Nose normal. Mouth/Throat: Mouth: Mucous membranes are moist. Pharynx: Oropharynx is clear. Uvula midline. No oropharyngeal exudate or posterior oropharyngeal erythema. Cardiovascular: Rate and Rhythm: Normal rate and regular rhythm. Heart sounds: Normal heart sounds. Pulmonary: Effort: Pulmonary effort is normal. No respiratory distress. Breath sounds: Normal breath sounds. No wheezing or rales. Musculoskeletal: Cervical back: Neck supple. Lymphadenopathy: Cervical: No cervical adenopathy. Skin: General: Skin is warm and dry. Findings: No erythema or rash. Neurological: Mental Status: He is alert. ASSESSMENT/PLAN: 1. Headache, unspecified headache type - ICD9: 784.0, ICD10: R51.9 (primary diagnosis) - KETOROLAC 60 MG/2 ML INTRAMUSCULAR SOLUTION - patient states headache has improved with Toradol injection. 2. Viral URI - ICD9: 465.9, ICD10: J06.9 - Discussed viral etiology and rationale for treatment. - Symptomatic treatment with prn analgesia - Supportive care with fluids and rest - COVID NAAT, UPPER RESPIRATORY, ROUTINE - Follow-up with your PCP in 3-5 days if symptoms have not improved or sooner if symptoms worsen - Discussed red flags and need for immediate medical evaluation if any occur. - Discussed supportive care treatment with fluids, rest and analgesia. - Discussed expected course of illness Siria Torrez APRN.LAPPING MACHINE OPERATOR documented in this encounter [facility] 06-26-2022 Discharge summary Note Date/Time June 26, 2022 2:36pm [facility] Medical Records Department [address] [place] [address] Emergency Department Summary 06/26/22 MR#: [id number] Acct: [id number] Name: KAMRAN LOPEZ Rep #:[id number] 2 : 1995 27 From: Kasi Snyder MD PCP: Care Physician,No Primary Status :REG ER Location: ED HPI History of Present Illness Chief Complaint: Back Detail of Chief Complaint: For her back pain for the past 3 days and difficulty sleeping Informant: patient Onset/Context/Timing Onset: Days (3 days) Context: Gradual Onset Injury: lifting, twisting, bending, direct trauma, fall, assault and repetitive motion Timing: Continuous and Waxes and wanes Quality: Dull and Aching Location: Thoracic (Left side over the distal portion of the latissimus dorsi muscle) Current Severity: Mild Maximum Severity: Severe Worsened by: improves with Movement and Bending Relieved by: Nothing Associated Symptoms Associated Symptoms: - (Patient does endorse polyuria, polydipsia, nocturia); Negative for Numbness, Tingling, Radiation to Right Leg, Radiation to Left Leg, Fever, Abdominal Pain, Dysuria, Unable to Ambulate, Unable to Transfer, Urinary Retention, Urinary Incontinence, Constipation or Fecal Incontinence Narrative Narrative: Patient is a 27-year-old male who appears uncomfortable. He is thin. He is 5 pounds under his normal weight. Because of left-sided back pain that is locatedover the lower dorsal spine region on the left. Movement exacerbates his pain. He denies cardiac respiratory symptoms. He does endorse polyuria, polydipsia and nocturia. There is family history of diabetes. He denies blurred vision. He has not been tested for diabetes. He denies history of renal ureterolithiasis. He denies radiation of the pain to his abdomen or groin region. He states he drove himself to the hospital. He states he is able to get a ride home. Patient denies fever, chills night sweats. Patient denies recent dental procedures. Patient denies recent infectious symptoms. Prior similar symptoms: Yes (He states this is worse.) Recent Illness/Hospitalization: No PFSH PFSH Home Medications cephalexin 500 mg capsule 500 mg PO [id number] #28 caps 11/02/18 [Rx Last Taken Unknown] ibuprofen 600 mg tablet 600 mg PO Q6H PRN PRN Pain #20 tabs 11/02/18 [Rx Last Taken Unknown] sulfamethoxazole 800 mg-trimethoprim 160 mg tablet 1 ea PO BID #14 tabs 11/02/18[Rx Last Taken Unknown] hydrocodone-acetaminophen 5-325mg 5mg-325mg 1 tab PO Q6H PRN PRN Pain 3 days #10TABLETS 06/26/22 [Rx Last Taken Unknown] naproxen 500 mg tablet (Naprosyn) 500 mg PO BID PRN pain #14 tabs 06/26/22 [Rx Last Taken Unknown] Allergy/AdvReac Type Severity Reaction Status Date / Time No Known Allergies Allergy Verified 06/26/22 14:25 Surgical History no surgical history no surgical history Social History (Updated 06/26/22 @ 14:[address] Kasi Snyder MD) Smoking Status: Current every day smoker tobacco type: cigarettes substance use type: does not use ROS ROS ED Constitutional Constitutional ED: Reports weight loss; Denies chills, fever(s), subjective or sweats Eyes Eyes: Denies blurry vision, change in vision or diplopia ENT ENT ED: Denies ear pain, rhinorrhea or sore throat Cardiovascular Cardiovascular: Denies chest pain, orthopnea, palpitations or paroxysmal nocturnal dyspnea Respiratory/Chest Respiratory/Chest: Denies dyspnea, dyspnea on exertion, orthopnea or paroxysmal nocturnal dyspnea Gastrointestinal Gastrointestinal: Denies abdominal pain, diarrhea, melena, nausea or vomiting Genitourinary Genitourinary ED: Denies dysuria, hematuria or urinary frequency Musculoskeletal Musculoskeletal: Reports back pain; Denies arthralgias, myalgias or neck pain Integumentary Denies abscess, Abrasions or rash Neurologic Neurologic: Denies headache(s), paresthesias or weakness Endocrine Endocrinology: Reports polydipsia and polyuria; Denies cold intolerance or heat intolerance Hematologic/Lymphatic Hematologic/Lymphatic: Denies easy bleeding or easy bruising EXAM Physical Exam Const Vital Signs: 06/26/22 14:23 Temperature 97.3 F L Temperature Source Temporal Pulse Rate 99 Respiratory Rate 16 Blood Pressure 131/89 H Blood Pressure Mean 103 Pulse Ox 98 Oxygen Delivery Method Room Air Positive well developed Constitutional Narrative: Thin appearing gentleman who is in discomfort. Patient developed goosebumps because of severe pain when I pushed on the left latissimus dorsi muscles. He has peridorsal tenderness. General Appearance ED: well developed HEENT Reports dry mucous membranes HEENT Narrative: Head is atraumatic normocephalic. Ears normal. Nares patent. Mouth ED: Yes dry mucous membranes Mouth: dry mucous membranes Eyes PERRL and EOMs intact bilaterally General Eye ED: Negative for pale conjunctiva or scleral icterus Neck no lymphadenopathy, supple and no JVD Resp normal respiratory effort and clear to auscultation bilaterally Cardio regular rate, regular rhythm, S1 normal heart sound, S2 normal heart sound and no murmurs GI normal to inspection, nondistended, normoactive bowel sounds, soft to palpation,non-tender, non-distended and no masses Back/Spine normal to inspection; Negative for no thoracic nor lumbar tenderness General Back: Negative for CVA tenderness Cervical Spine: Negative for cervical spine tenderness Thoracic Spine / Upper Back: paraspinal muscle tenderness left T9, T10, T11 and T12 Lumbar Spine / Lower Back: ROM limited Extremity normal to inspection and no clubbing, cyanosis or edema General Extremety ED: Negative for edema or tenderness General Extremity: Negative for edema Neuro oriented x3 and no sensory deficits noted Sensorium / Orientation: alert Psych mental status grossly normal Skin no rashes or lesions noted and no wounds MDM MDM MDM Narrative Medical decision making narrative: With family history of diabetes and complaint of polyuria, polydipsia and nocturia will obtain BG T. Because patient states he is predominately drinking water will obtain BMP to assess for hyponatremia. Patient was medicated with IVToradol, morphine and Zofran. Since there is no history of direct trauma and pain is only been present for 3 days per literature imaging is not indicated at this time. Lab Data Lab results narrative: Blood sugar is normal. This raises then concern for hyponatremia. Labs: Laboratory Results - last 24 hr 06/26/22 06/26/22 14:36 14:40 Sodium 140 Potassium 3.1 L Chloride 106 Carbon Dioxide 25.0 Anion Gap 9 BUN 14 Creatinine 0.96 Estim Creat Clear Calc 104.90 Est GFR (MDRD) Af Amer 123 Est GFR (MDRD) Non-Af 102 BUN/Creatinine Ratio 14.6 Glucose 97 Calcium 9.3 POC Glucose 97 Treatment and Re-Evaluation Narrative: Patient was reassessed at 1513. He reports significant improvement but still having discomfort. Additional dose of morphine was prescribed prior to discharge. He was sent home with prescription for NSAID and opiate analgesia. He understands the cause of his pain. Discharge Plan Triage Chief Complaint: Back ED Provider: Kasi Snyder Dx/Rx/DC Orders Clinical Impression: Acute thoracic myofascial strain, Acute hypokalemia Instructions: ED Hypokalemia, ED Thoracic Spine Strain Prescriptions: New hydrocodone-acetaminophen [hydrocodone-acetaminophen] 5-325 mg tablet 1 tab PO Q6H PRN PRN (Reason: Pain) 3 Days Qty: 10 0RF naproxen [Naprosyn] 500 mg tablet 500 mg PO BID PRN (Reason: pain) Qty: 14 0RF No Action sulfamethoxazole-trimethoprim 1 EACH tablet 1 ea PO BID Qty: 14 0RF cephalexin 500 MG capsule 500 mg PO [id number] Qty: 28 0RF ibuprofen 600 MG tablet 600 mg PO Q6H PRN PRN (Reason: Pain) Qty: 20 0RF Primary Care Provider: Care Physician,No Primary Referrals: Care Physician,No Primary [Primary Care Provider] - Doctor,Your [Non-Staff] - 1 Week if not improving Activity Restrictions/Additional Instructions: 1. Apply ice to your back 6-10 times a day 2. Take medication as prescribed 3. If you do not improve follow-up with your doctor. The name of your doctor is listed on your insurance card issued to you by [employer]. Disposition Disposition: Home, Self Care What to do if you have Problems For any increased pain, shortness of breath, bleeding, nausea or vomiting, chestpain, or any unexpected problems, contact your Primary Care Provider. Call [facility] ([phone]) or report to the closest Emergency Room. Call 911 if necessary. 06/26/22 1510 <Electronically signed by Kasi Snyder MD> Cosigner Signature (if applicable): CC: No Primary Care Physician ~ Signed [facility] Work Phone: [phone]) 624-888905-04-2023 Hospital Discharge instructions Additional Instructions 1. Apply ice to your back 6-10 times a day 2. Take medication as prescribed 3. If you do not improve follow-up with your doctor. The name of your doctor is listed on your insurance card issued to you by [employer].[facility] Work Phone: 1(883) 808-927003-30-2023 NoteHNO ID: [id number] Author: Robson Garcia MD Service: ? Author Type: Physician Type: Progress Notes Filed: 05/22/2022 9:26 AM Note Text: Patient presents with: Diarrhea: Pt reported N/V, throat pain, swelling x3 days. HPI: Feeling sick for 4 days. Exposed to strep throat and stomach illness at work. Positive symptoms: Sore throat, Nausea, Vomiting, Diarrhea, mild Rhinorrhea, hot and cold, headache Negative symptoms: Cough, Fever, blood in stool, focal abdominal pain, OTC: excedrin, pepto MEDICATIONS: No current outpatient medications on file. No current facility-administered medications for this visit. ALLERGIES: ALLERGIES No Known Allergies VITALS: BP 128/64 Pulse (!) 137 Temp 36.8 ?C (98.2 ?F) (Tympanic) Resp 20 Wt 62.3 kg (137 lb 6.4 oz) SpO2 97% PHYSICAL EXAM: GEN: mildly ill appearing HEENT: PERRL, EOMI, conjunctiva clear Throat: moist mucous membranes, mild erythema, no exudate Neck: supple, no thyromegaly, no lymphadenopathy HEART: regular rate and rhythm, no murmurs LUNGS: clear to auscultation, no wheezes or crackles, no increased WOB ABD: Soft, non-distended, non-tender, no masses ASSESSMENT/PLAN: 1. Gastroenteritis - ICD9: 558.9, ICD10: K52.9 (primary diagnosis) 2. Throat pain - ICD9: 784.1, ICD10: R07.0 - STREP A MOLECULAR (POC) - negative. Infectious gastroenteritis. Hydration with fluids encouraged. Resume normal solid intake as tolerated. Hand hygiene to reduce transmission. Follow up in the ER with signs of dehydration, increasing abdominal pain, high fever, or blood in vomit or stool. Robson Garcia, [facility]03-30-2023 History of Present illness Narrative* Robson Garcia MD - 05/22/2022 9:14 AM EDT Patient presents with: Diarrhea: Pt reported N/V, throat pain, swelling x3 days. HPI: Feeling sick for 4 days. Exposed to strep throat and stomach illness at work. Positive symptoms: Sore throat, Nausea, Vomiting, Diarrhea, mild Rhinorrhea, hot and cold, headache Negative symptoms: Cough, Fever, blood in stool, focal abdominal pain, OTC: excedrin, pepto MEDICATIONS: No current outpatient medications on file. No current facility-administered medications for this visit. ALLERGIES: ALLERGIES No Known Allergies VITALS: BP 128/64 Pulse (!) 137 Temp 36.8 C (98.2 F) (Tympanic) Resp 20 Wt 62.3 kg (137 lb 6.4 oz) SpO2 97% PHYSICAL EXAM: GEN: mildly ill appearing HEENT: PERRL, EOMI, conjunctiva clear Throat: moist mucous membranes, mild erythema, no exudate Neck: supple, no thyromegaly, no lymphadenopathy HEART: regular rate and rhythm, no murmurs LUNGS: clear to auscultation, no wheezes or crackles, no increased WOB ABD: Soft, non-distended, non-tender, no masses ASSESSMENT/PLAN: 1. Gastroenteritis - ICD9: 558.9, ICD10: K52.9 (primary diagnosis) 2. Throat pain - ICD9: 784.1, ICD10: R07.0 - STREP A MOLECULAR (POC) - negative. Infectious gastroenteritis. Hydration with fluids encouraged. Resume normal solid intake as tolerated. Hand hygiene to reduce transmission. Follow up in the ER with signs of dehydration, increasing abdominal pain, high fever, or blood in vomit or stool. Robson Garcia MD [facility] Miscellaneous Notes* Telephone Encounter - Liliya Cox LPN - 09/26/2021 8:42 AM EDT Phone call placed brief message to contact a nurse. Liliya Cox LPN * Telephone Encounter - Roxanne Holguin RN - 09/26/2021 8:06 AM EDT Patient returned call and given provider's message below and patient verbalized understanding. Janeth Holguin RN * Telephone Encounter - Lizette Cordon APRN.CNP - 09/26/2021 7:21 AM EDT Please notify of negative covid test. Continue comfort measures for symptoms as you would for a cold. Any worsening symptoms follow up with PCP or ER. Lizette Cordon APRN.CNP [facility] History of Present illness Narrative* Robson Garcia MD - 09/25/2021 9:40 AM EDT Patient presents with: Nasal Congestion: drainage, diarrhea, chills, bodyaches and fatigue x last night HPI: Feeling sick since last night, diarrhea since yesterday. Positive symptoms: headache, Body Aches, Fatigue, Nasal Congestion, Rhinorrhea, feverish, Chills, Diarrhea, occasional Cough, slight Chest heaviness, Nausea, Negative symptoms: Shortness of breath, Vomiting, OTC: Tylenol MEDICATIONS: No current outpatient medications on file. No current facility-administered medications for this visit. ALLERGIES: ALLERGIES No Known Allergies VITALS: BP 100/62 Pulse 98 Temp 36.6 C (97.8 F) Resp 16 Wt 63 kg (139 lb) SpO2 99% PHYSICAL EXAM: GEN: mildly ill appearing HEENT: PERRL, EOMI, conjunctiva clear Sinuses: non-tender frontal sinus, non-tender maxillary sinuses Throat: moist mucous membranes, Neck: supple, no thyromegaly, no lymphadenopathy HEART: regular rate and rhythm, no murmurs LUNGS: clear to auscultation, no wheezes or crackles, no increased WOB ASSESSMENT/PLAN: 1. Influenza-like illness - ICD9: 487.1, ICD10: J11.1 - Possible COVID-19. - Discussed supportive care treatment with home isolation, rest, hydration, cold medicine, and analgesia. - Red flags to seek further treatment include chest pain, shortness of breath, and lethargy; in theER if severe. - 2019 CORONAVIRUS Robson Garcia MD [facility] History of Present illness Narrative* Robson Gracia MD - 09/07/2021 3:36 PM EDT Patient presents with: Derm Problem: cat scratch left pinky finger x 10 days HPI: Left 5th finger scratched by cat 1 1/2 weeks ago. Increasing swelling the last couple days. Pain is located on the proximal phalange of the left fifth finger. Flexion is slightly decreased. He has had a headache. Denies any fever, fatigue, malaise, arthralgia. No current treatment for thesymptoms. PAST MEDICAL HISTORY Diagnosis Date epidural hematoma Febrile seizure (HCC) Jaundice of Premature MEDICATIONS: ALLERGIES: ALLERGIES No Known Allergies VITALS: BP 102/62 Pulse 68 Temp 36.5 C (97.7 F) Resp 16 Wt 62.6 kg (138 lb) SpO2 99% PHYSICAL EXAM: GEN: pleasant, no acute distress, alert, accompanied by his mother, marijuana odor in the room. HEENT: PERRL, EOMI, NECK: supple, no lymphadenopathy, no thyromegaly HEART: regular rate, regular rhythm, no murmurs LUNGS: clear to auscultation, no wheezes or crackles, no increased WOB EXT: no clubbing, no cyanosis, shotty left epitrochlear lymphadenopathy. HAND: Mild swelling and edema from the fifth finger MCP to PIP. Healed scratch volar side of the PIP and proximal phalange. Mild decreased flexion of the finger. Tender proximal phalange. Nontender middle and distal phalange. No hand swelling or tenderness. ASSESSMENT/PLAN: 1. Cat scratch of hand, left, initial encounter - ICD9: 914.0, E906.8, ICD10: S60.512A, W55.03XA - AMOXICILLIN 875 MG-POTASSIUM CLAVULANATE 125 MG TABLET for finger infection. Declines tetanus booster. Follow up urgently with signs of worsening infection such as increasing redness, pain, swelling, purulent drainage, or fever/malaise. Robson Garcia MD [facility] Diagnosis Cat scratch of hand, left, initial encounter- Primary [facility] Diagnosis Influenza-like illness- Primary Influenza with other respiratory manifestations documented in [facility] encounter [facility] noteNo assessment information availableWNationwide Children's [facility] Work Phone: Evaluation note* Diagnosis Gastroenteritis- Primary Other and unspecified noninfectious gastroenteritis and colitis Throat pain documented in this encounter [facility] note* Diagnosis Headache, unspecified headache type- Primary Viral URI Acute upper respiratory infections of unspecified site [facility] Additional Instructions Thank you for trusting us with your care today! Please take Tylenol (2 pills, 650 mg), ibuprofen (2 pills, 400 mg) every 6 hours as needed for pain and fever control. Please take antibiotics as prescribed. Please return to the emergency department if your symptoms change or worsen. Specifically develop nausea vomiting out of antibiotic by mouth. If your redness suddenly gets worse and spreads up your arm or matter of hours. Please follow with your primary care physician for further outpatient evaluation and management.[facility] Work Phone: Chief Complaint and Reason for Visit Chief Complaint HAND INJURY Chief Complaint BACK PAIN Chief Complaint left middle finger Advance Directives Advance Directive Response Recorded Date/ Time Living Will No December 22 4:53pm Power of It Security Project Manager No December 22, 2021 4:53pm Advance Directive Response Recorded Date/ Time Living Will No June 26, 2022 2: 38pm Power of It Security Project Manager No June 26, 2022 2:38pm Advance Directive Response Recorded Date/ Time Living Will No December 08 7:50am Power of It Security Project Manager No December 08, 2022 7:50am Summary Purpose Family History No Family History Records FoundNo Family History Records Found Medications Administered Section Inactive Administered Medications - up to 3 most recent administrations Medication Order MAR Action Action Date Dose Rate Site keTORolac 60 mg injection (Toradol) 60 mg, INTRAMUSCULAR, ONCE, 1 dose, On Thu11/25/22 at 1130, Ketorolac (Toradol) is indicated for the short-term (up to 5 days) management of moderately severe acute pain. Continuation of ketorolac (Toradol) beyond 5 days increases the risk of developing serious adverse events. Please verify the duration of therapy for ketorolac (Toradol)., If ordered PRN for pain, patient/guardian may elect to receive this medication for higher pain levels INSTEAD of the opioid, if preferred: Yes Given 11/25/2022 11:23 AM EDT 60 mg Buttocks, Right Additional Source Comments Source Comments (unrecognize d section and content) In the event this informatio n is protected by the Federal Confidentiality of Alcohol and Drug Abuse Patient Records regulations: The Federal rules restrict any use of the information to criminally investigate or prosecute any alcohol or drug abuse patient.[facility] the event this information is protected by the Federal Confidentiality of Alcohol and Drug Abuse Patient Records regulations: The Federal rules restrict any use of the information to criminally investigate or prosecute any alcohol or drug abuse patient.[facility] HospitalIn the event this information is protected by the Federal Confidentiality of Alcohol and Drug Abuse Patient Records regulations: The Federal rules restrict any use of the information to criminally investigate or prosecute any alcohol or drug abuse patient.[facility] HospitalIn the event this information is protected by the Federal Confidentiality of Alcohol and Drug Abuse Patient Records regulations: The Federal rules restrict any use of the information to criminally investigate or prosecute any alcohol or drug abuse patient.[facility] HospitalIn the event this information is protected by the Federal Confidentiality of Alcohol and Drug Abuse Patient Records regulations: The Federal rules restrict any use of the information to criminally investigate or prosecute any alcohol or drug abuse patient.[facility] Reason for Visit (unrecogniz ed section and content) Reason Comments Derm Problem cat scratch left pin [place] finger x 10 days Reason Comments Nasal Congestion drainage, diarrhea, chills, bodyaches and fatigue x last night Reason Comments Results Reason Comments Diarrhea Pt reported N/V, thr oat pain, swelling x3 days. Reason Comments Headache FAULKNER x 1 day and conge stion x 1 week Goals (unrecognized section and content) Goals may be documented in a n alternate sectionGoals may be documented in an alternate sectionGoals may be documented in an alternate section Care Teams (unrecognized sec tion and content) Team Status: Active Member Role Status Dates No Primary Care Physician Family Provider Active No Primary Care Physician Primary Care Provider Active Team Status: Inactive Member Role Status Dates No Primary Care Physician Primary Care Provider Active Dr. Kasi Snyder MD Emergency Provider Active Team Status: Inactive Member Role Status Dates No Primary Care Physician Primary Care Provider Active Dr. Abraham Howell DO Emergency Provider Active (unrecognized sect ion and content) No Status Records FoundNo Status Records Found INFORMATION SOURCE (unrecogn ized section and content) DATE CREATED AUTHOR 07/02/2022 [facility] DATE CREATED AUTHOR AUTHOR'S ORGANIZ ATION 11/29/2022 [facility] FOR RECORDS PERTAINING TO PATIENTS WHO ARE OR HAVE BEEN ENROLLED IN A CHEMICAL DEPENDENCY/SUBSTANCEABUSE PROGRAM, SOME INFORMATION MAY BE OMITTED. This clinical summary was aggregated from multiple sources. Caution should be exercised in using it in the provision of clinical care. This summary normalizes information from multiple sources, and as a consequence, information in this document may materially change the coding, format and clinical context of patient data. In addition, data may be omitted in some cases. CLINICAL DECISIONS SHOULD BE BASED ON THE PRIMARY CLINICAL RECORDS. [facility]. provides no warranty or guarantee of the accuracy or completeness of information in this document.
[2025-02-17] MEDS: 0.9% Normal Saline (1000mL) 1,000 ML 999 ML IV ×2 (13:37→15:24)
[2025-02-17 13:42] LABS: AST(SGOT) 30 U/L (<=37); Alanine Aminotransfer ALT/SGPT 22 U/L (<=46); Albumin, Serum 4.8 g/dL (3.5-5.0); Alkaline Phosphatase 61 U/L (40-129); Anion Gap 12 (7-18); BUN 19 mg/dL (4-19); BUN/Creat Ratio 19.4 RATIO (10-20); Calcium,Total 9.6 mg/dL (7.6-11.0); Carbon Dioxide 24.5 mmol/L (20.0-29.0); Chloride 103 mmol/L (96-106); Estimated Creatinine Clearance 106.34 ml/min (50-250); Globulin 2.7 g/dL (2.2-4.2); Glucose 135 mg/dL (70-99); Lipase 39 U/L (13-75); Potassium 4.4 mmol/L (3.5-5.1)
[2025-02-17 13:47] LABS: Mucous, Urine 0 SEEN /hpf (<or=2+); Red Blood Cells-Urine 0 SEEN /hpf (0-5)
--- NOTE | 2025-02-17 13:48 | CM.ED ---
Social work Reason for referral: no PCP/no insurance Referral source: case find SW entered patient's room and left the following resources due to patient being in imaging: [facility] Provider Directory, Coco Castanon information, and how to apply for Medicaid. SW intends to check back in for further needs at a later time. Ene Garcia, FUSING MACHINE OPERATOR, CHEMICAL LABORATORY SCIENTIST
[2025-02-17 13:53] LABS: Color, Urine Yellow (Yellow); Glucose, Dipstick Normal (Normal); Ketone-Dipstick 5 mg/dl (Negative); Leukocyte Esterase-Dipstick Negative /ul (Negative); Nitrite-Dipstick Negative (Negative); Occult Blood-Urine Negative /ul (Negative); Protein-Dipstick 30 mg/dl (Negative); Specific Gravity, Urine 1.010 (1.002-1.030); Urine Bilirubin Dipstick Negative (Negative)
[2025-02-17 13:59] LABS: Squamous Epithelial Cells - UA 0-5 SEEN /hpf (0-5)
[2025-02-17 14:09] VITALS: BP 127/78; PULSE 97; RESP 26; O2SAT 100
[2025-02-17 15:51] VITALS: BP 115/73; PULSE 100; RESP 16; TEMP 38.1; O2SAT 100
== END 2025-02-17 16:04 | disposition home or self-care (01) ==
PROVIDERS: Emergency Provider Emergency Medicine; Visit Provider Emergency Medicine
DX: A08.4 Viral intestinal infection, unspecified (principal); R11.2 Nausea with vomiting, unspecified; R10.9 Unspecified abdominal pain; F17.210 Nicotine dependence, cigarettes, uncomplicated; Z87.820 Personal history of traumatic brain injury
CPT/HCPCS: 74177; 80053; 81001; 83690; 85025; 96361; 96375; 96376; 99284; Q9967; A4216; J2405